=== PATIENT | female | born 1955 | race Caucasian/White ===

== ENCOUNTER 2020-11-07 10:03 | Inpatient (IN) ==
[2020-11-02 13:02] LABS: Basophils # 0.1 10*3/uL (0.0-0.2); Basophils % 1.1 % (0.0-0.8); Eosinophils # 0.4 10*3/uL (0.0-0.87); Eosinophils % 6.1 % (0.00-10.9); Hematocrit 38.5 VOL% (35.7-47.0); Immature Granulocytes % 0.3 %; Immature Granulocytes Absolute 0.02 #; Lymphocytes # 1.7 10*3/uL (1.4-4.0); Lymphocytes % 24.1 % (21.3-54.2); Mean Corpuscular HGB Conc 31.2 GM/DL (32-36); Mean Corpuscular Volume 87.5 FL (87-102); Mean Platelet Volume 9.6 FL (9.6-12.0); Neutrophils % 57.4 % (38.7-73.9); Platelet Count 433 T/CUMM (130-400); Red Cell Distribution Width 14.5 % (9.3-17.3)
[2020-11-02 13:28] LABS: Albumin 3.6 G/DL (3.4-5.0); Bilirubin,Total 0.7 MG/DL (0.20-1.00); Calcium 9.7 MG/DL (8.5-10.1); Osmolality,Calculated 281.4 MOS/KG (273-304); Potassium 4.1 MMOL/L (3.5-5.1); Total Protein 8.8 G/DL (6.4-8.2)
[~2020-11-07 10:03] MED LIST: LACTATED RINGERS 1,000 ML IV SCH; cefTRIAXone 1,000 MG in SODIUM CHLORIDE 0.9% 100 ML IV ONE
[2020-11-07] MEDS ORDERED: DIAZEPAM 5 MG TABLET PO ONE ×2 (10:50→10:51)
[2020-11-07] MEDS ORDERED: FAMOTIDINE 20 MG TABLET PO ONE ×2 (10:50→10:51)
[2020-11-07] MEDS ORDERED: fentaNYL 100 MCG/2 ML VIAL ONE (14:16)
[2020-11-07] MEDS ORDERED: MIDAZOLAM 2 MG/2 ML VIAL ONE (14:16)
[2020-11-07] MEDS ORDERED: LIDOCAINE 2% 5 ML VIAL ONE (14:28)
[2020-11-07] MEDS ORDERED: SEVOFLURANE 1 UNIT/15 MINUTE INH ONE (14:28)
[2020-11-07] MEDS ORDERED: ONDANSETRON 4 MG/2 ML VIAL ONE (14:28)
[2020-11-07] MEDS ORDERED: propofoL 200 MG/20 ML VIAL IV ONE (14:28)
[2020-11-07] MEDS ORDERED: ONDANSETRON 4 MG/2 ML VIAL IV PRN (15:24)
[2020-11-07] MEDS ORDERED: PROMETHAZINE 25 MG/1 ML VIAL IM PRN (15:24)
[2020-11-07] MEDS ORDERED: LACTULOSE 20 GM/30 ML UDCUP PO PRN (15:28)
[2020-11-07] MEDS ORDERED: cefTRIAXone 1,000 MG in SODIUM CHLORIDE 0.9% 100 ML IV SCH (15:30)
[2020-11-07] MEDS: DIVALPROEX ER 250 MG TABLET PO SCH (20:19)
[2020-11-07] MEDS: GABAPENTIN 300 MG CAPSULE PO SCH (20:20)
[2020-11-07] MEDS: levETIRAcetam 500 MG TABLET PO SCH (20:20)
[2020-11-07] MEDS: traZODone 50 MG TABLET PO SCH (20:20)
[2020-11-08 05:57] LABS: Potassium 4.4 MMOL/L (3.5-5.1)
[2020-11-08 06:07] LABS: Basophils # 0.1 10*3/uL (0.0-0.2); Eosinophils # 0.3 10*3/uL (0.0-0.87); Eosinophils % 2.8 % (0.00-10.9); Hematocrit 40.1 VOL% (35.7-47.0); Hemoglobin 12.1 GM/DL (12.0-16.0); Immature Granulocytes % 0.3 %; Immature Granulocytes Absolute 0.03 #; Lymphocytes # 1.2 10*3/uL (1.4-4.0); Mean Corpuscular HGB Conc 30.2 GM/DL (32-36); Mean Corpuscular Volume 93.3 FL (87-102); Mean Platelet Volume 9.8 FL (9.6-12.0); Monocytes % 16.9 % (1.7-12.7); Platelet Count 330 T/CUMM (130-400); Red Cell Distribution Width 14.6 % (9.3-17.3); White Blood Count 9.7 T/CUMM (4-12)
[2020-11-08] MEDS: LEVOTHYROXINE 88 MCG TABLET PO SCH (06:16)
[2020-11-08 06:21] LABS: Band Neutrophils 1 % (0-10); Eosinophils 1 % (0-10); Lymphocytes 17 % (20-55); Platelet Estimate Normal; Segmented Neutrophils 72 % (50-85); Total Cells Counted 100
[2020-11-08 09:03] LABS: INR 1.2; PT Patient Result 12.7 SECS (10.5-12.0)
[2020-11-08] MEDS: DIVALPROEX ER 250 MG TABLET PO SCH ×2 (09:05→21:11)
[2020-11-08] MEDS: levETIRAcetam 500 MG TABLET PO SCH (09:05)
[2020-11-08] MEDS: ACETAMINOPHEN 325 MG TABLET PO PRN ×2 (09:05→18:00)
[2020-11-08] MEDS: LORATADINE 10 MG TABLET PO SCH (09:06)
[2020-11-08] MEDS: SERTRALINE 100 MG TABLET PO SCH (09:06)
[2020-11-08 10:05] LABS: Basophils # 0.1 10*3/uL (0.0-0.2); Basophils % 1.3 % (0.0-0.8); Eosinophils # 0.2 10*3/uL (0.0-0.87); Eosinophils % 2.2 % (0.00-10.9); Hemoglobin 11.1 GM/DL (12.0-16.0); Immature Granulocytes % 0.3 %; Immature Granulocytes Absolute 0.03 #; Lymphocytes % 11.5 % (21.3-54.2); Mean Corpuscular HGB Conc 31.7 GM/DL (32-36); Mean Corpuscular Volume 86.6 FL (87-102); Mean Platelet Volume 9.4 FL (9.6-12.0); Monocytes % 11.7 % (1.7-12.7); Platelet Count 342 T/CUMM (130-400); Red Blood Count 4.04 MC/CUMM (3.8-5.5); Red Cell Distribution Width 14.6 % (9.3-17.3); White Blood Count 8.7 T/CUMM (4-12)
[2020-11-08 10:38] LABS: Bilirubin,Total 0.4 MG/DL (0.20-1.00); Calcium 8.7 MG/DL (8.5-10.1); Osmolality,Calculated 278.8 MOS/KG (273-304); Potassium 4.1 MMOL/L (3.5-5.1); Total Protein 8.8 G/DL (6.4-8.2)
[2020-11-08 12:30] LABS: Bilirubin,Urine Negative (Negative); Blood, Urine Moderate mg/dL (Negative); Glucose,Urine (UA) Negative (Negative); Ketones,Urine 5 mg/dL (Negative); Mucus,Urine Few /LPF (Occasional); Nitrite,Urine Negative (Negative); Protein,Urine 100 MG/DL; RBC,Urine 334 /HPF (0-4); Urine Appearance CLOUDY (Clear); Urine Color Yellow (Yellow); Urine Specific Gravity 1.013 (1.001-1.035); Urine Urobilinogen < 2.0 EU/DL (0.2-1.0)
[2020-11-08] MEDS: SODIUM CHLORIDE 0.9% 1,000 ML IV SCH ×2 (13:31→13:57)
[2020-11-08] MEDS ORDERED: HYDROmorphone 2 MG/1 ML VIAL IV PRN (13:32)
[2020-11-08] MEDS ORDERED: ONDANSETRON 4 MG/2 ML VIAL IV PRN (13:32)
[2020-11-08] MEDS ORDERED: MEPERIDINE 25 MG/1 ML VIAL IV PRN (13:32)
[2020-11-08] MEDS ORDERED: PROMETHAZINE INJ 25 MG in SODIUM CHLORIDE 0.9% 50 ML IV PRN (13:32)
[2020-11-08] MEDS ORDERED: diphenhydrAMINE 50 MG/1 ML VIAL IV PRN (13:32)
[2020-11-08] MEDS ORDERED: propofoL 200 MG/20 ML VIAL IV ONE (13:43)
[2020-11-08] MEDS ORDERED: PHENYLEPHRINE 1 MG/10 ML SYRINGE IV ONE (13:43)
[2020-11-08] MEDS ORDERED: LIDOCAINE 2% 5 ML VIAL ONE (13:43)
[2020-11-08] MEDS ORDERED: ONDANSETRON 4 MG/2 ML VIAL ONE (13:44)
[2020-11-08] MEDS ORDERED: fentaNYL 100 MCG/2 ML VIAL ONE (13:44)
[2020-11-08] MEDS ORDERED: MIDAZOLAM 2 MG/2 ML VIAL ONE (13:44)
[2020-11-08] MEDS ORDERED: PHENYLEPHRINE 10 MG/1 ML VIAL IV ONE (13:44)
[2020-11-08] MEDS ORDERED: DEXAMETHASONE 4 MG/1 ML VIAL ONE ×2 (13:44→13:47)
[2020-11-08] MEDS ORDERED: ROCURONIUM 50 MG/5 ML VIAL IV ONE (13:45)
[2020-11-08] MEDS ORDERED: SODIUM CHLORIDE 0.9% 100 ML IV ONE (13:45)
[2020-11-08] MEDS ORDERED: LACTATED RINGERS 1,000 ML IV ONE (13:45)
[2020-11-08] MEDS ORDERED: SUCCINYLCHOLINE 200 MG/10 ML VIAL ONE (13:45)
[2020-11-08] MEDS ORDERED: SEVOFLURANE 1 UNIT/15 MINUTE INH ONE (13:52)
[2020-11-08] MEDS: CEFEPIME 1,000 MG in SODIUM CHLORIDE 0.9% 100 ML IV SCH (15:09)
[2020-11-08] MEDS: PANTOPRAZOLE 40 MG TABLET PO SCH (21:11)
[2020-11-09] MEDS: traZODone 50 MG TABLET PO SCH ×2 (00:05→21:44)
[2020-11-09] MEDS: gemfibroziL 600 MG TABLET PO SCH ×3 (00:05→21:43)
[2020-11-09] MEDS: GABAPENTIN 300 MG CAPSULE PO SCH ×2 (00:05→21:44)
[2020-11-09] MEDS: levETIRAcetam 500 MG TABLET PO SCH ×3 (00:05→21:43)
[2020-11-09] MEDS: CEFEPIME 1,000 MG in SODIUM CHLORIDE 0.9% 100 ML IV SCH ×2 (04:20→15:22)
[2020-11-09 06:19] LABS: Risk Ratio 7.13; Thyroid Stimulating Hormone 1.69 uIU/ml (0.358-3.74); VLDL Cholesterol 54.2 MG/DL
[2020-11-09] MEDS: LEVOTHYROXINE 88 MCG TABLET PO SCH (06:24)
[2020-11-09 07:36] LABS: Basophils # 0.1 10*3/uL (0.0-0.2); Basophils % 0.6 % (0.0-0.8); Eosinophils % 0.1 % (0.00-10.9); Hematocrit 34.3 VOL% (35.7-47.0); Hemoglobin 10.7 GM/DL (12.0-16.0); Immature Granulocytes % 0.5 %; Immature Granulocytes Absolute 0.05 #; Lymphocytes # 0.6 10*3/uL (1.4-4.0); Lymphocytes % 5.9 % (21.3-54.2); Mean Corpuscular HGB Conc 31.2 GM/DL (32-36); Mean Corpuscular Volume 88.6 FL (87-102); Mean Platelet Volume 10.3 FL (9.6-12.0); Monocytes % 4.4 % (1.7-12.7); Neutrophils % 88.5 % (38.7-73.9); Platelet Count 251 T/CUMM (130-400); Red Blood Count 3.87 MC/CUMM (3.8-5.5); Red Cell Distribution Width 14.8 % (9.3-17.3); White Blood Count 10.7 T/CUMM (4-12)
[2020-11-09] MEDS ORDERED: DEXTROSE 50% 25 GM/50 ML VIAL IV PRN (07:41)
[2020-11-09] MEDS ORDERED: GLUCAGON 1 MG VIAL IM PRN (07:41)
[2020-11-09 07:44] LABS: Osmolality,Calculated 284.5 MOS/KG (273-304); Potassium 3.7 MMOL/L (3.5-5.1)
[2020-11-09 07:59] LABS: Band Neutrophils 3 % (0-10); Lymphocytes 5 % (20-55); Platelet Estimate Adequate; Segmented Neutrophils 89 % (50-85); Total Cells Counted 100
[2020-11-09 08:00] LABS: Hypochromasia Slight; Microcytosis Slight
[2020-11-09] MEDS: LORATADINE 10 MG TABLET PO SCH (14:26)
[2020-11-09] MEDS: DIVALPROEX ER 250 MG TABLET PO SCH ×2 (14:26→22:25)
[2020-11-09] MEDS: PANTOPRAZOLE 40 MG TABLET PO SCH (14:27)
[2020-11-09] MEDS: SERTRALINE 100 MG TABLET PO SCH (14:27)
[2020-11-09] MEDS: INSULIN LISPRO 100 UNIT/ML SUBCUT SCH ×3 (14:54→21:56)
[2020-11-09] MEDS ORDERED: SODIUM CHLORIDE 0.9% 500 ML IV ONE ×3 (15:04→23:32)
[2020-11-09] MEDS ORDERED: LACTULOSE 320 GM/480 ML BOTTLE RECTAL PRN (15:20)
[2020-11-09] MEDS ORDERED: LACTULOSE 320 GM/480 ML BOTTLE RECTAL ONE (15:31)
[2020-11-09] MEDS ORDERED: VANCOMYCIN INJ 1,000 MG in SODIUM CHLORIDE 0.9% 250 ML IV ONE (16:55)
[2020-11-09] MEDS ORDERED: METOPROLOL TARTRATE 5 MG/5 ML VIAL IV ONE ×2 (17:05→17:06)
[2020-11-09] MEDS: SODIUM CHLORIDE 0.9% 1,000 ML IV SCH ×3 (17:40→18:00)
[2020-11-09] MEDS ORDERED: LORazepam 2 MG/1 ML VIAL IV ONE (17:44)
[2020-11-09] MEDS ORDERED: DIGOXIN 0.5 MG/2 ML AMP IV ONE ×2 (17:50→18:50)
[2020-11-09] MEDS ORDERED: DIGOXIN 0.5 MG/2 ML AMP ONE ×2 (17:52→17:54)
[2020-11-09 18:02] LABS: Basophils # 0.1 10*3/uL (0.0-0.2); Basophils % 0.7 % (0.0-0.8); Hematocrit 32.7 VOL% (35.7-47.0); Immature Granulocytes % 0.7 %; Immature Granulocytes Absolute 0.06 #; Lymphocytes # 0.8 10*3/uL (1.4-4.0); Lymphocytes % 9.3 % (21.3-54.2); Mean Corpuscular HGB Conc 30.6 GM/DL (32-36); Mean Corpuscular Volume 89.6 FL (87-102); Monocytes % 2.5 % (1.7-12.7); NRBC # 0.02 10*3/uL; Neutrophils % 86.8 % (38.7-73.9); Platelet Count 165 T/CUMM (130-400); Red Blood Count 3.65 MC/CUMM (3.8-5.5); Red Cell Distribution Width 15.1 % (9.3-17.3); White Blood Count 8.9 T/CUMM (4-12)
[2020-11-09 18:22] LABS: Albumin 2.1 G/DL (3.4-5.0); Bilirubin,Total 0.5 MG/DL (0.20-1.00); Calcium 7.7 MG/DL (8.5-10.1); Osmolality,Calculated 287.4 MOS/KG (273-304); Potassium 3.4 MMOL/L (3.5-5.1); Total Protein 6.8 G/DL (6.4-8.2)
[2020-11-09 18:42] LABS: Band Neutrophils 11 % (0-10); Lymphocytes 6 % (20-55); Platelet Estimate Normal; Segmented Neutrophils 81 % (50-85); Total Cells Counted 100; Toxic Granulation 1+
[2020-11-09] MEDS ORDERED: LACTULOSE 320 GM/480 ML BOTTLE RECTAL SCH (21:00)
[2020-11-09] MEDS: ACETAMINOPHEN 325 MG TABLET PO PRN (21:43)
[2020-11-09] MEDS: LACTULOSE 20 GM/30 ML UDCUP PO SCH (21:44)
[2020-11-09] MEDS ORDERED: ACETAMINOPHEN 325 MG TABLET PO ONE (23:33)
[2020-11-10] MEDS: VALPROIC ACID 250 MG/5 ML UDCUP PO SCH ×4 (00:17→18:01)
[2020-11-10] MEDS: NOREPINEPHRINE 8 MG in SODIUM CHLORIDE 0.9% 242 ML IV PRN ×4 (00:40→12:26)
[2020-11-10 02:32] LABS: Basophils # 0.1 10*3/uL (0.0-0.2); Basophils % 0.5 % (0.0-0.8); Hematocrit 32.3 VOL% (35.7-47.0); Hemoglobin 10.1 GM/DL (12.0-16.0); Immature Granulocytes % 0.8 %; Immature Granulocytes Absolute 0.09 #; Lymphocytes # 1.2 10*3/uL (1.4-4.0); Lymphocytes % 10.2 % (21.3-54.2); Mean Corpuscular HGB Conc 31.3 GM/DL (32-36); Mean Corpuscular Volume 87.8 FL (87-102); Mean Platelet Volume 10.1 FL (9.6-12.0); Monocytes % 2.5 % (1.7-12.7); Platelet Count 148 T/CUMM (130-400); Red Blood Count 3.68 MC/CUMM (3.8-5.5); Red Cell Distribution Width 15.1 % (9.3-17.3); White Blood Count 11.7 T/CUMM (4-12)
[2020-11-10] MEDS: CEFEPIME 1,000 MG in SODIUM CHLORIDE 0.9% 100 ML IV SCH (02:40)
[2020-11-10 02:54] LABS: Calcium 7.3 MG/DL (8.5-10.1); Osmolality,Calculated 293.1 MOS/KG (273-304); Potassium 3.1 MMOL/L (3.5-5.1)
[2020-11-10 03:02] LABS: Band Neutrophils 13 % (0-10); Lymphocytes 16 % (20-55); Metamyelocytes 5 %; Segmented Neutrophils 63 % (50-85); Total Cells Counted 100
[2020-11-10 03:03] LABS: Reactive Lymphocytes 1+
[2020-11-10 03:04] LABS: Platelet Estimate Normal
[2020-11-10] MEDS ORDERED: MAGNESIUM SULF RIDER 4 GM/100 ML PREMIX IV PRN (03:42)
[2020-11-10] MEDS ORDERED: MAGNESIUM SULF RIDER 2 GM/50 ML PREMIX IV PRN (03:42)
[2020-11-10] MEDS ORDERED: NOREPINEPHRINE 4 MG/4 ML VIAL IV ONE ×2 (03:55→07:41)
[2020-11-10 05:08] LABS: ABG Base Excess -14.3 MMOL/L (-2.5-2.5); ABG HCO3 13.5 MMOL/L (20-26); ABG Oxygen Saturation 97.2 % (95-100); ABG PH 7.316 (7.35-7.45); ABG TCO2 9.6 MMOL/L (23-27)
[2020-11-10 05:14] LABS: ABG PCO2 20.6 MM HG (35-48)
[2020-11-10] MEDS ORDERED: POTASSIUM CHLORIDE RIDER 10 MEQ/100 ML PREMIX IV PRN (05:18)
[2020-11-10] MEDS: POTASSIUM BICARB EFFERVESCENT 20 MEQ TAB.EFF PER TUBE PRN ×4 (05:30→09:50)
[2020-11-10] MEDS: METOPROLOL TARTRATE 5 MG/5 ML VIAL IV PRN ×3 (05:39→15:55)
[2020-11-10] MEDS: SODIUM CHLORIDE 0.9% 1,000 ML IV SCH ×2 (05:40→10:45)
[2020-11-10] MEDS: LEVOTHYROXINE 100 MCG VIAL IV SCH (05:40)
[2020-11-10] MEDS ORDERED: methylPREDNISolone SOD SUC 125 MG/2 ML VIAL IV SCH (07:00)
[2020-11-10] MEDS ORDERED: ENOXAPARIN 30 MG/0.3 ML SYRINGE SUBCUT SCH (08:00)
[2020-11-10] MEDS: INSULIN LISPRO 100 UNIT/ML SUBCUT SCH ×3 (08:32→16:56)
[2020-11-10] MEDS: ENOXAPARIN 30 MG/0.3 ML SYRINGE SUBCUT SCH (08:32)
[2020-11-10] MEDS: PANTOPRAZOLE 40 MG VIAL IV SCH (08:32)
[2020-11-10] MEDS: CHOLECALCIFEROL 5,000 UNIT TABLET PO SCH ×2 (08:33→21:10)
[2020-11-10] MEDS: LACTULOSE 20 GM/30 ML UDCUP PO SCH ×2 (08:33→21:10)
[2020-11-10] MEDS: gemfibroziL 600 MG TABLET PO SCH ×2 (08:33→21:11)
[2020-11-10] MEDS: ASCORBIC ACID 500 MG TABLET PO SCH ×2 (08:34→21:11)
[2020-11-10] MEDS: LORATADINE 10 MG TABLET PO SCH (08:34)
[2020-11-10] MEDS: ZINC GLUCONATE 50 MG TABLET PO SCH (08:34)
[2020-11-10] MEDS: CETIRIZINE 10 MG TABLET PO SCH (08:34)
[2020-11-10] MEDS: SERTRALINE 100 MG TABLET PO SCH (08:34)
[2020-11-10] MEDS: levETIRAcetam 500 MG TABLET PO SCH ×2 (08:34→21:11)
[2020-11-10 08:58] LABS: Ferritin 418.1 ng/mL (8-252)
[2020-11-10] MEDS ORDERED: CASIRIVIMAB/IMDEVIMAB 1,200 MG in SODIUM CHLORIDE 0.9% 100 ML IV ONE (09:00)
[2020-11-10] MEDS ORDERED: SODIUM BICARBONATE 50 MEQ/50 ML VIAL IV ONE (09:36)
[2020-11-10] MEDS: methylPREDNISolone SOD SUC 125 MG/2 ML VIAL IV SCH ×2 (09:45→18:01)
[2020-11-10] MEDS: SODIUM BICARB INJ 150 MEQ in STERILE WATER INJ 1,000 ML IV SCH (10:44)
[2020-11-10] MEDS ORDERED: SODIUM CHLORIDE 0.9% 1,000 ML IV ONE (12:56)
[2020-11-10] MEDS: SODIUM CHLORIDE 0.9% 1,000 ML IV ONE ×2 (13:10→14:32)
[2020-11-10] MEDS ORDERED: LEVOFLOXACIN INJ 750 MG/150 ML PREMIX IV ONE (13:30)
[2020-11-10] MEDS: VANCOMYCIN 50 MG/ML 60 ML/BOTTLE PO SCH ×2 (14:12→18:01)
[2020-11-10] MEDS: ALBUMIN 5% 25 GM/500 ML VIAL IV SCH (19:27)
[2020-11-10] MEDS: GABAPENTIN 300 MG CAPSULE PO SCH (21:10)
[2020-11-10] MEDS: MELATONIN 3 MG TABLET PO SCH (21:10)
[2020-11-10] MEDS: traZODone 50 MG TABLET PO SCH (21:11)
[2020-11-10] MEDS ORDERED: SODIUM CHLORIDE 0.9% 200 ML IV SCH (23:59)
[2020-11-10] MEDS ORDERED: ACETAMINOPHEN 325 MG TABLET PO PRN (23:59)
[2020-11-10] MEDS ORDERED: MECLIZINE 25 MG TABLET PO PRN (23:59)
[2020-11-10] MEDS ORDERED: ONDANSETRON 4 MG/2 ML VIAL IV PRN (23:59)
[2020-11-10] MEDS ORDERED: diphenhydrAMINE 50 MG/1 ML VIAL IV PRN ×2 (23:59)
[2020-11-11] MEDS: VALPROIC ACID 250 MG/5 ML UDCUP PO SCH ×4 (00:32→18:05)
[2020-11-11] MEDS: INSULIN LISPRO 100 UNIT/ML SUBCUT SCH ×4 (00:33→18:52)
[2020-11-11] MEDS: VANCOMYCIN 50 MG/ML 60 ML/BOTTLE PO SCH ×4 (00:33→18:05)
[2020-11-11] MEDS: methylPREDNISolone SOD SUC 125 MG/2 ML VIAL IV SCH ×2 (02:33→11:42)
[2020-11-11] MEDS: ALBUMIN 5% 25 GM/500 ML VIAL IV SCH ×2 (02:33→11:43)
[2020-11-11] MEDS: CEFEPIME 1,000 MG in SODIUM CHLORIDE 0.9% 100 ML IV SCH (02:34)
[2020-11-11] MEDS: METOPROLOL TARTRATE 5 MG/5 ML VIAL IV PRN (03:24)
[2020-11-11] MEDS: NOREPINEPHRINE 8 MG in SODIUM CHLORIDE 0.9% 242 ML IV PRN (03:29)
[2020-11-11 04:43] LABS: Calcium 7.1 MG/DL (8.5-10.1); Potassium 3.4 MMOL/L (3.5-5.1)
[2020-11-11 04:51] LABS: Basophils % 0.1 % (0.0-0.8)
[2020-11-11 05:08] LABS: Hematocrit 24.1 VOL% (35.7-47.0); Immature Granulocytes % 0.5 %; Immature Granulocytes Absolute 0.04 #; Lymphocytes # 0.6 10*3/uL (1.4-4.0); Lymphocytes % 6.9 % (21.3-54.2); Mean Corpuscular HGB Conc 32.4 GM/DL (32-36); Mean Corpuscular Volume 84.9 FL (87-102); Mean Platelet Volume 11.3 FL (9.6-12.0); Monocytes % 3.6 % (1.7-12.7); Neutrophils % 88.9 % (38.7-73.9); Platelet Count 124 T/CUMM (130-400); Red Cell Distribution Width 15.6 % (9.3-17.3); White Blood Count 8.4 T/CUMM (4-12)
[2020-11-11 05:09] LABS: Hemoglobin 7.8 GM/DL (12.0-16.0); Red Blood Count 2.84 MC/CUMM (3.8-5.5)
[2020-11-11 05:39] LABS: Band Neutrophils 11 % (0-10); Hypochromasia Slight; Lymphocytes 7 % (20-55); Microcytosis Slight; Nucleated Red Blood Cells 1 (0-5); Platelet Estimate Normal; Segmented Neutrophils 81 % (50-85); Total Cells Counted 100
[2020-11-11] MEDS: LEVOTHYROXINE 100 MCG VIAL IV SCH (06:26)
[2020-11-11] MEDS: ENOXAPARIN 30 MG/0.3 ML SYRINGE SUBCUT SCH (09:13)
[2020-11-11] MEDS: LACTULOSE 20 GM/30 ML UDCUP PO SCH ×2 (09:13→20:38)
[2020-11-11] MEDS: POTASSIUM BICARB EFFERVESCENT 20 MEQ TAB.EFF PER TUBE PRN ×3 (09:13→14:00)
[2020-11-11] MEDS: gemfibroziL 600 MG TABLET PO SCH ×2 (09:14→20:37)
[2020-11-11] MEDS: PANTOPRAZOLE 40 MG VIAL IV SCH (09:14)
[2020-11-11] MEDS: LORATADINE 10 MG TABLET PO SCH (09:14)
[2020-11-11] MEDS: levETIRAcetam 500 MG TABLET PO SCH ×2 (09:14→20:37)
[2020-11-11] MEDS: SERTRALINE 100 MG TABLET PO SCH (09:14)
[2020-11-11] MEDS: CHOLECALCIFEROL 5,000 UNIT TABLET PO SCH ×2 (09:14→20:38)
[2020-11-11] MEDS: ZINC GLUCONATE 50 MG TABLET PO SCH (09:14)
[2020-11-11] MEDS: CETIRIZINE 10 MG TABLET PO SCH (09:14)
[2020-11-11] MEDS: ASCORBIC ACID 500 MG TABLET PO SCH ×2 (09:14→20:37)
[2020-11-11] MEDS: SODIUM BICARB INJ 150 MEQ in STERILE WATER INJ 1,000 ML IV SCH (11:42)
[2020-11-11] MEDS ORDERED: SODIUM CHLORIDE 0.9% 1,000 ML IV PRN (12:10)
[2020-11-11] MEDS: methylPREDNISolone SOD SUC 40 MG/1 ML VIAL IV SCH (18:05)
[2020-11-11 20:28] LABS: ABG HCO3 22.7 MMOL/L (20-26); ABG Oxygen Saturation 96.4 % (95-100); ABG PCO2 27.7 MM HG (35-48); ABG PH 7.473 (7.35-7.45); ABG PO2 79.2 MM HG (80-95); ABG TCO2 17.7 MMOL/L (23-27)
[2020-11-11] MEDS ORDERED: CLORAZEPATE 3.75 MG TABLET PO ONE (20:30)
[2020-11-11] MEDS: MELATONIN 3 MG TABLET PO SCH (20:37)
[2020-11-11] MEDS: traZODone 50 MG TABLET PO SCH (20:37)
[2020-11-11] MEDS: GABAPENTIN 300 MG CAPSULE PO SCH (20:38)
[2020-11-12] MEDS: VANCOMYCIN 50 MG/ML 60 ML/BOTTLE PO SCH ×4 (01:03→18:57)
[2020-11-12] MEDS: VALPROIC ACID 250 MG/5 ML UDCUP PO SCH ×4 (01:03→18:57)
[2020-11-12] MEDS: INSULIN LISPRO 100 UNIT/ML SUBCUT SCH ×4 (01:04→18:57)
[2020-11-12] MEDS: methylPREDNISolone SOD SUC 40 MG/1 ML VIAL IV SCH ×3 (01:04→18:57)
[2020-11-12] MEDS: CEFEPIME 1,000 MG in SODIUM CHLORIDE 0.9% 100 ML IV SCH (02:04)
[2020-11-12 06:05] LABS: Basophils % 0.3 % (0.0-0.8); Hematocrit 28.5 VOL% (35.7-47.0); Hemoglobin 9.3 GM/DL (12.0-16.0); Immature Granulocytes % 1.7 %; Immature Granulocytes Absolute 0.12 #; Lymphocytes # 0.3 10*3/uL (1.4-4.0); Lymphocytes % 4.7 % (21.3-54.2); Mean Corpuscular HGB Conc 32.6 GM/DL (32-36); Mean Corpuscular Volume 88.5 FL (87-102); Mean Platelet Volume 12.3 FL (9.6-12.0); Monocytes % 4.5 % (1.7-12.7); Neutrophils % 88.8 % (38.7-73.9); Red Blood Count 3.22 MC/CUMM (3.8-5.5); Red Cell Distribution Width 16.9 % (9.3-17.3); White Blood Count 7.3 T/CUMM (4-12)
[2020-11-12 06:17] LABS: Albumin 2.4 G/DL (3.4-5.0); Bilirubin,Total 0.5 MG/DL (0.20-1.00); Calcium 7.9 MG/DL (8.5-10.1); Potassium 3.7 MMOL/L (3.5-5.1); Total Protein 6.6 G/DL (6.4-8.2)
[2020-11-12 06:18] LABS: Platelet Count 91 T/CUMM (130-400)
[2020-11-12 06:29] LABS: Band Neutrophils 4 % (0-10); Hypochromasia 1+; Lymphocytes 4 % (20-55); Microcytosis 1+; Platelet Estimate Decreased; Segmented Neutrophils 88 % (50-85); Total Cells Counted 100
[2020-11-12] MEDS: POTASSIUM BICARB EFFERVESCENT 20 MEQ TAB.EFF PER TUBE PRN (06:37)
[2020-11-12] MEDS: LEVOTHYROXINE 100 MCG VIAL IV SCH (06:40)
[2020-11-12] MEDS: LACTULOSE 20 GM/30 ML UDCUP PO SCH ×2 (08:06→22:01)
[2020-11-12] MEDS: ENOXAPARIN 30 MG/0.3 ML SYRINGE SUBCUT SCH (08:06)
[2020-11-12] MEDS: PANTOPRAZOLE 40 MG VIAL IV SCH (08:06)
[2020-11-12] MEDS: CETIRIZINE 10 MG TABLET PO SCH (08:07)
[2020-11-12] MEDS: CHOLECALCIFEROL 5,000 UNIT TABLET PO SCH ×2 (08:07→22:01)
[2020-11-12] MEDS: levETIRAcetam 500 MG TABLET PO SCH ×2 (08:07→22:02)
[2020-11-12] MEDS: ASCORBIC ACID 500 MG TABLET PO SCH ×2 (08:07→22:02)
[2020-11-12] MEDS: gemfibroziL 600 MG TABLET PO SCH ×2 (08:07→22:01)
[2020-11-12] MEDS: SERTRALINE 100 MG TABLET PO SCH (08:07)
[2020-11-12] MEDS: ZINC GLUCONATE 50 MG TABLET PO SCH (08:07)
[2020-11-12] MEDS: LORATADINE 10 MG TABLET PO SCH (08:07)
[2020-11-12] MEDS: NOREPINEPHRINE 8 MG in SODIUM CHLORIDE 0.9% 242 ML IV PRN (08:08)
[2020-11-12] MEDS ORDERED: POTASSIUM PHOSPHATE 30 MMOL in SODIUM CHLORIDE 0.9% 250 ML IV ONE (10:56)
[2020-11-12] MEDS: LEVOFLOXACIN INJ 500 MG/100 ML PREMIX IV SCH (13:27)
[2020-11-12] MEDS: SODIUM BICARB INJ 150 MEQ in STERILE WATER INJ 1,000 ML IV SCH (14:43)
[2020-11-12] MEDS: MICAFUNGIN 100 MG in SODIUM CHLORIDE 0.9% 100 ML IV SCH (15:45)
[2020-11-12] MEDS: MELATONIN 3 MG TABLET PO SCH (22:01)
[2020-11-12] MEDS: traZODone 50 MG TABLET PO SCH (22:02)
[2020-11-12] MEDS: GABAPENTIN 300 MG CAPSULE PO SCH (22:02)
[2020-11-12] MEDS: ACETAMINOPHEN 325 MG TABLET PO PRN (22:02)
[2020-11-13] MEDS: VALPROIC ACID 250 MG/5 ML UDCUP PO SCH ×4 (00:19→18:56)
[2020-11-13] MEDS: INSULIN LISPRO 100 UNIT/ML SUBCUT SCH ×4 (00:19→18:56)
[2020-11-13] MEDS: VANCOMYCIN 50 MG/ML 60 ML/BOTTLE PO SCH ×4 (00:19→18:57)
[2020-11-13] MEDS: CEFEPIME 1,000 MG in SODIUM CHLORIDE 0.9% 100 ML IV SCH (02:19)
[2020-11-13] MEDS: methylPREDNISolone SOD SUC 40 MG/1 ML VIAL IV SCH ×3 (02:20→18:56)
[2020-11-13 05:51] LABS: Basophils % 0.2 % (0.0-0.8); Eosinophils % 0.2 % (0.00-10.9); Hematocrit 28.3 VOL% (35.7-47.0); Immature Granulocytes % 0.5 %; Immature Granulocytes Absolute 0.03 #; Lymphocytes # 0.3 10*3/uL (1.4-4.0); Lymphocytes % 5.9 % (21.3-54.2); Mean Corpuscular HGB Conc 31.8 GM/DL (32-36); Mean Corpuscular Volume 90.1 FL (87-102); Mean Platelet Volume 12.5 FL (9.6-12.0); Neutrophils % 89.2 % (38.7-73.9); Red Blood Count 3.14 MC/CUMM (3.8-5.5); Red Cell Distribution Width 17.5 % (9.3-17.3); White Blood Count 5.8 T/CUMM (4-12)
[2020-11-13] MEDS: LEVOTHYROXINE 100 MCG VIAL IV SCH (06:05)
[2020-11-13 06:30] LABS: Platelet Count 69 T/CUMM (130-400)
[2020-11-13 06:35] LABS: Band Neutrophils 4 % (0-10); Lymphocytes 7 % (20-55); Segmented Neutrophils 85 % (50-85); Total Cells Counted 100
[2020-11-13 06:36] LABS: Hypochromasia 1+; Microcytosis 1+; Platelet Estimate Decreased
[2020-11-13 07:20] LABS: Calcium 7.6 MG/DL (8.5-10.1); Osmolality,Calculated 308.1 MOS/KG (273-304); Potassium 4.2 MMOL/L (3.5-5.1)
[2020-11-13] MEDS: ZINC GLUCONATE 50 MG TABLET PO SCH (08:04)
[2020-11-13] MEDS: CHOLECALCIFEROL 5,000 UNIT TABLET PO SCH ×2 (08:05→21:46)
[2020-11-13] MEDS: ASCORBIC ACID 500 MG TABLET PO SCH ×2 (08:05→21:46)
[2020-11-13] MEDS: gemfibroziL 600 MG TABLET PO SCH ×2 (08:05→21:47)
[2020-11-13] MEDS: LORATADINE 10 MG TABLET PO SCH (08:05)
[2020-11-13] MEDS: levETIRAcetam 500 MG TABLET PO SCH ×2 (08:05→21:47)
[2020-11-13] MEDS: SERTRALINE 100 MG TABLET PO SCH (08:05)
[2020-11-13] MEDS: LACTULOSE 20 GM/30 ML UDCUP PO SCH ×2 (08:05→21:46)
[2020-11-13] MEDS: CETIRIZINE 10 MG TABLET PO SCH (08:05)
[2020-11-13] MEDS: PANTOPRAZOLE 40 MG VIAL IV SCH (08:06)
[2020-11-13] MEDS: INSULIN GLARGINE 100 UNIT/ML SUBCUT SCH (12:20)
[2020-11-13] MEDS ORDERED: FONDAPARINUX 2.5 MG/0.5 ML SYRINGE SUBCUT SCH (15:00)
[2020-11-13] MEDS: ACETAMINOPHEN 325 MG TABLET PO PRN ×2 (16:32→21:47)
[2020-11-13] MEDS ORDERED: SODIUM CHLORIDE 0.9% 1,000 ML IV ONE (16:50)
[2020-11-13] MEDS: PHENYLEPHRINE DRIP 40 MG/250 ML PREMIX IV PRN ×2 (17:40→23:45)
[2020-11-13] MEDS: MICAFUNGIN 100 MG in SODIUM CHLORIDE 0.9% 100 ML IV SCH (19:11)
[2020-11-13] MEDS: MELATONIN 3 MG TABLET PO SCH (21:46)
[2020-11-13] MEDS: GABAPENTIN 300 MG CAPSULE PO SCH (21:47)
[2020-11-13] MEDS: traZODone 50 MG TABLET PO SCH (21:47)
[2020-11-14] MEDS: VALPROIC ACID 250 MG/5 ML UDCUP PO SCH ×4 (00:20→17:34)
[2020-11-14] MEDS: VANCOMYCIN 50 MG/ML 60 ML/BOTTLE PO SCH ×4 (00:20→17:44)
[2020-11-14] MEDS: INSULIN LISPRO 100 UNIT/ML SUBCUT SCH ×4 (00:29→17:44)
[2020-11-14] MEDS: CEFEPIME 1,000 MG in SODIUM CHLORIDE 0.9% 100 ML IV SCH (02:51)
[2020-11-14] MEDS: methylPREDNISolone SOD SUC 40 MG/1 ML VIAL IV SCH ×3 (02:51→17:34)
[2020-11-14 04:33] LABS: Basophils % 0.1 % (0.0-0.8); Eosinophils % 0.1 % (0.00-10.9); Hematocrit 29.4 VOL% (35.7-47.0); Hemoglobin 9.2 GM/DL (12.0-16.0); Immature Granulocytes % 2.3 %; Immature Granulocytes Absolute 0.22 #; Lymphocytes # 0.5 10*3/uL (1.4-4.0); Lymphocytes % 5.6 % (21.3-54.2); Mean Corpuscular HGB Conc 31.3 GM/DL (32-36); Mean Corpuscular Volume 91.6 FL (87-102); Mean Platelet Volume 12.6 FL (9.6-12.0); Monocytes % 2.6 % (1.7-12.7); Neutrophils % 89.3 % (38.7-73.9); Red Blood Count 3.21 MC/CUMM (3.8-5.5); Red Cell Distribution Width 17.9 % (9.3-17.3)
[2020-11-14 04:38] LABS: Platelet Count 49 T/CUMM (130-400); White Blood Count 9.7 T/CUMM (4-12)
[2020-11-14 04:48] LABS: Calcium 7.5 MG/DL (8.5-10.1); Osmolality,Calculated 306.7 MOS/KG (273-304)
[2020-11-14 04:54] LABS: Band Neutrophils 5 % (0-10); Hypochromasia 1+; Lymphocytes 8 % (20-55); Microcytosis 1+; Segmented Neutrophils 86 % (50-85); Total Cells Counted 100
[2020-11-14 04:55] LABS: Platelet Estimate Decreased
[2020-11-14] MEDS: LEVOTHYROXINE 100 MCG VIAL IV SCH (06:13)
[2020-11-14] MEDS: LACTULOSE 20 GM/30 ML UDCUP PO SCH ×2 (08:38→22:15)
[2020-11-14] MEDS: INSULIN GLARGINE 100 UNIT/ML SUBCUT SCH (08:38)
[2020-11-14] MEDS: PANTOPRAZOLE 40 MG VIAL IV SCH (08:38)
[2020-11-14] MEDS: CHOLECALCIFEROL 5,000 UNIT TABLET PO SCH ×2 (08:39→22:15)
[2020-11-14] MEDS: ASCORBIC ACID 500 MG TABLET PO SCH ×2 (08:39→22:15)
[2020-11-14] MEDS: ZINC GLUCONATE 50 MG TABLET PO SCH (08:39)
[2020-11-14] MEDS: levETIRAcetam 500 MG TABLET PO SCH ×2 (08:39→22:15)
[2020-11-14] MEDS: CETIRIZINE 10 MG TABLET PO SCH (08:39)
[2020-11-14] MEDS: SERTRALINE 100 MG TABLET PO SCH (08:39)
[2020-11-14] MEDS: gemfibroziL 600 MG TABLET PO SCH ×2 (08:40→22:15)
[2020-11-14] MEDS: LORATADINE 10 MG TABLET PO SCH (08:40)
[2020-11-14] MEDS: LEVOFLOXACIN INJ 500 MG/100 ML PREMIX IV SCH (14:00)
[2020-11-14 17:05] LABS: Basophils % 0.5 % (0.0-0.8); Eosinophils % 0.5 % (0.00-10.9); Hematocrit 28.3 VOL% (35.7-47.0); Hemoglobin 8.9 GM/DL (12.0-16.0); Immature Granulocytes % 12.9 %; Immature Granulocytes Absolute 0.73 #; Lymphocytes # 0.7 10*3/uL (1.4-4.0); Mean Corpuscular HGB Conc 31.4 GM/DL (32-36); Mean Platelet Volume 13.2 FL (9.6-12.0); NRBC # 0.02 10*3/uL; Neutrophils % 65.1 % (38.7-73.9); Platelet Count 42 T/CUMM (130-400); Red Blood Count 3.01 MC/CUMM (3.8-5.5); Red Cell Distribution Width 17.8 % (9.3-17.3); White Blood Count 5.7 T/CUMM (4-12)
[2020-11-14] MEDS: MICAFUNGIN 100 MG in SODIUM CHLORIDE 0.9% 100 ML IV SCH (17:33)
[2020-11-14 21:08] LABS: Band Neutrophils 8 % (0-10); Eosinophils 1 % (0-10); Lymphocytes 16 % (20-55); Nucleated Red Blood Cells 1 (0-5); Platelet Estimate Decreased; Segmented Neutrophils 71 % (50-85); Total Cells Counted 100
[2020-11-14 21:18] LABS: Anisocytosis 1+; Microcytosis Slight
[2020-11-14] MEDS: GABAPENTIN 300 MG CAPSULE PO SCH (22:15)
[2020-11-14] MEDS: MELATONIN 3 MG TABLET PO SCH (22:15)
[2020-11-14] MEDS: traZODone 50 MG TABLET PO SCH (22:15)
[2020-11-15] MEDS: methylPREDNISolone SOD SUC 40 MG/1 ML VIAL IV SCH ×2 (02:00→10:12)
[2020-11-15 05:33] LABS: Basophils % 0.3 % (0.0-0.8); Eosinophils % 0.2 % (0.00-10.9); Hematocrit 28.5 VOL% (35.7-47.0); Hemoglobin 9.1 GM/DL (12.0-16.0); Immature Granulocytes % 1.3 %; Immature Granulocytes Absolute 0.08 #; Lymphocytes # 0.4 10*3/uL (1.4-4.0); Lymphocytes % 5.9 % (21.3-54.2); Mean Corpuscular HGB Conc 31.9 GM/DL (32-36); Mean Corpuscular Volume 91.1 FL (87-102); Mean Platelet Volume 13.6 FL (9.6-12.0); Monocytes % 5.5 % (1.7-12.7); Neutrophils % 86.8 % (38.7-73.9); Platelet Count 46 T/CUMM (130-400); Red Blood Count 3.13 MC/CUMM (3.8-5.5); Red Cell Distribution Width 17.8 % (9.3-17.3); White Blood Count 6.2 T/CUMM (4-12)
[2020-11-15 05:53] LABS: Band Neutrophils 5 % (0-10); Hypochromasia 1+; Lymphocytes 9 % (20-55); Microcytosis 1+; Platelet Estimate Decreased; Segmented Neutrophils 84 % (50-85); Total Cells Counted 100
[2020-11-15 05:56] LABS: Calcium 7.4 MG/DL (8.5-10.1); Osmolality,Calculated 319.3 MOS/KG (273-304); Potassium 4.5 MMOL/L (3.5-5.1)
[2020-11-15] MEDS: VANCOMYCIN 50 MG/ML 60 ML/BOTTLE PO SCH ×3 (06:15→17:37)
[2020-11-15] MEDS: VALPROIC ACID 250 MG/5 ML UDCUP PO SCH ×4 (06:15→17:37)
[2020-11-15] MEDS: LEVOTHYROXINE 100 MCG VIAL IV SCH (06:30)
[2020-11-15] MEDS: INSULIN LISPRO 100 UNIT/ML SUBCUT SCH ×4 (06:30→17:37)
[2020-11-15] MEDS: LACTULOSE 20 GM/30 ML UDCUP PO SCH ×2 (10:12→21:00)
[2020-11-15] MEDS: ASCORBIC ACID 500 MG TABLET PO SCH ×2 (10:13→21:00)
[2020-11-15] MEDS: levETIRAcetam 500 MG TABLET PO SCH ×2 (10:13→21:00)
[2020-11-15] MEDS: ZINC GLUCONATE 50 MG TABLET PO SCH (10:13)
[2020-11-15] MEDS: CETIRIZINE 10 MG TABLET PO SCH (10:14)
[2020-11-15] MEDS: LORATADINE 10 MG TABLET PO SCH (10:14)
[2020-11-15] MEDS: CHOLECALCIFEROL 5,000 UNIT TABLET PO SCH ×2 (10:14→21:00)
[2020-11-15] MEDS: SERTRALINE 100 MG TABLET PO SCH (10:14)
[2020-11-15] MEDS: gemfibroziL 600 MG TABLET PO SCH ×2 (10:15→21:00)
[2020-11-15] MEDS: INSULIN GLARGINE 100 UNIT/ML SUBCUT SCH (10:16)
[2020-11-15] MEDS: MULTIVITAMIN LIQUID (CENTRUM) 60 ML BOTTLE PO SCH (11:25)
[2020-11-15] MEDS: MELATONIN 3 MG TABLET PO SCH (21:00)
[2020-11-15] MEDS: traZODone 50 MG TABLET PO SCH (21:00)
[2020-11-15] MEDS: GABAPENTIN 300 MG CAPSULE PO SCH (21:00)
[2020-11-16] MEDS: INSULIN LISPRO 100 UNIT/ML SUBCUT SCH ×5 (00:43→23:50)
[2020-11-16] MEDS: VALPROIC ACID 250 MG/5 ML UDCUP PO SCH ×5 (00:44→23:50)
[2020-11-16] MEDS: methylPREDNISolone SOD SUC 40 MG/1 ML VIAL IV SCH ×4 (01:04→17:32)
[2020-11-16 05:30] LABS: Basophils % 0.2 % (0.0-0.8); Eosinophils % 0.4 % (0.00-10.9); Hematocrit 30.3 VOL% (35.7-47.0); Hemoglobin 9.7 GM/DL (12.0-16.0); Immature Granulocytes Absolute 0.05 #; Lymphocytes # 0.5 10*3/uL (1.4-4.0); Lymphocytes % 10.7 % (21.3-54.2); Mean Corpuscular Volume 91.3 FL (87-102); Mean Platelet Volume 13.7 FL (9.6-12.0); Monocytes % 5.8 % (1.7-12.7); Neutrophils % 81.9 % (38.7-73.9); Red Blood Count 3.32 MC/CUMM (3.8-5.5); Red Cell Distribution Width 17.6 % (9.3-17.3)
[2020-11-16 05:34] LABS: Platelet Count 71 T/CUMM (130-400)
[2020-11-16 05:54] LABS: Band Neutrophils 11 % (0-10); Hypochromasia 1+; Lymphocytes 6 % (20-55); Metamyelocytes 1 %; Microcytosis 1+; Segmented Neutrophils 78 % (50-85); Tear Drop Cells Slight; Total Cells Counted 100
[2020-11-16 05:55] LABS: Platelet Estimate Decreased
[2020-11-16 05:57] LABS: Calcium 7.9 MG/DL (8.5-10.1); Osmolality,Calculated 320.8 MOS/KG (273-304); Potassium 4.6 MMOL/L (3.5-5.1)
[2020-11-16] MEDS: VANCOMYCIN 50 MG/ML 60 ML/BOTTLE PO SCH ×6 (06:15→23:50)
[2020-11-16] MEDS: LEVOTHYROXINE 100 MCG VIAL IV SCH (06:15)
[2020-11-16] MEDS: MICAFUNGIN 100 MG in SODIUM CHLORIDE 0.9% 100 ML IV SCH ×2 (09:21→17:37)
[2020-11-16] MEDS: gemfibroziL 600 MG TABLET PO SCH ×2 (09:23→21:15)
[2020-11-16] MEDS: ASCORBIC ACID 500 MG TABLET PO SCH ×2 (09:23→21:15)
[2020-11-16] MEDS: CETIRIZINE 10 MG TABLET PO SCH (09:23)
[2020-11-16] MEDS: levETIRAcetam 500 MG TABLET PO SCH ×2 (09:24→21:15)
[2020-11-16] MEDS: INSULIN GLARGINE 100 UNIT/ML SUBCUT SCH (09:24)
[2020-11-16] MEDS: LORATADINE 10 MG TABLET PO SCH (09:24)
[2020-11-16] MEDS: LACTULOSE 20 GM/30 ML UDCUP PO SCH ×2 (09:24→21:15)
[2020-11-16] MEDS: ZINC GLUCONATE 50 MG TABLET PO SCH (09:25)
[2020-11-16] MEDS: CHOLECALCIFEROL 5,000 UNIT TABLET PO SCH ×2 (09:25→21:15)
[2020-11-16] MEDS: ACETAMINOPHEN 325 MG TABLET PO PRN (09:40)
[2020-11-16] MEDS: MULTIVITAMIN LIQUID (CENTRUM) 60 ML BOTTLE PO SCH (10:02)
[2020-11-16] MEDS: SERTRALINE 100 MG TABLET PO SCH (10:02)
[2020-11-16] MEDS: LEVOFLOXACIN INJ 500 MG/100 ML PREMIX IV SCH (12:32)
[2020-11-16] MEDS: MELATONIN 3 MG TABLET PO SCH (21:15)
[2020-11-16] MEDS: traZODone 50 MG TABLET PO SCH (21:15)
[2020-11-16] MEDS: GABAPENTIN 300 MG CAPSULE PO SCH (21:15)
[2020-11-17] MEDS: methylPREDNISolone SOD SUC 40 MG/1 ML VIAL IV SCH ×3 (01:08→17:56)
[2020-11-17 05:49] LABS: Basophils % 0.2 % (0.0-0.8); Hematocrit 32.3 VOL% (35.7-47.0); Hemoglobin 10.4 GM/DL (12.0-16.0); Immature Granulocytes % 0.8 %; Immature Granulocytes Absolute 0.05 #; Lymphocytes # 0.6 10*3/uL (1.4-4.0); Lymphocytes % 9.7 % (21.3-54.2); Mean Corpuscular HGB Conc 32.2 GM/DL (32-36); Mean Corpuscular Volume 89.7 FL (87-102); Mean Platelet Volume 14.1 FL (9.6-12.0); Neutrophils % 82.3 % (38.7-73.9); Platelet Count 93 T/CUMM (130-400); Red Cell Distribution Width 17.2 % (9.3-17.3)
[2020-11-17] MEDS: VALPROIC ACID 250 MG/5 ML UDCUP PO SCH ×3 (05:54→17:47)
[2020-11-17] MEDS: VANCOMYCIN 50 MG/ML 60 ML/BOTTLE PO SCH ×3 (05:55→17:47)
[2020-11-17] MEDS: INSULIN LISPRO 100 UNIT/ML SUBCUT SCH ×3 (05:55→17:46)
[2020-11-17] MEDS: LEVOTHYROXINE 100 MCG VIAL IV SCH (05:55)
[2020-11-17 06:09] LABS: Band Neutrophils 3 % (0-10); Lymphocytes 13 % (20-55); Platelet Estimate Decreased; Segmented Neutrophils 83 % (50-85); Total Cells Counted 100
[2020-11-17 06:20] LABS: Osmolality,Calculated 319.1 MOS/KG (273-304); Potassium 4.8 MMOL/L (3.5-5.1)
[2020-11-17] MEDS: LACTULOSE 20 GM/30 ML UDCUP PO SCH ×2 (08:45→20:59)
[2020-11-17] MEDS: ASCORBIC ACID 500 MG TABLET PO SCH ×2 (08:46→21:00)
[2020-11-17] MEDS: levETIRAcetam 500 MG TABLET PO SCH ×2 (08:46→21:00)
[2020-11-17] MEDS: INSULIN GLARGINE 100 UNIT/ML SUBCUT SCH (08:46)
[2020-11-17] MEDS: LORATADINE 10 MG TABLET PO SCH (08:47)
[2020-11-17] MEDS: CETIRIZINE 10 MG TABLET PO SCH (08:47)
[2020-11-17] MEDS: ZINC GLUCONATE 50 MG TABLET PO SCH (08:47)
[2020-11-17] MEDS: CHOLECALCIFEROL 5,000 UNIT TABLET PO SCH ×2 (08:47→21:00)
[2020-11-17] MEDS: SERTRALINE 100 MG TABLET PO SCH (08:47)
[2020-11-17] MEDS: MULTIVITAMIN LIQUID (CENTRUM) 60 ML BOTTLE PO SCH (08:47)
[2020-11-17] MEDS: gemfibroziL 600 MG TABLET PO SCH ×2 (08:47→21:01)
[2020-11-17] MEDS: MICAFUNGIN 100 MG in SODIUM CHLORIDE 0.9% 100 ML IV SCH (17:47)
[2020-11-17] MEDS: GABAPENTIN 300 MG CAPSULE PO SCH (21:00)
[2020-11-17] MEDS: MELATONIN 3 MG TABLET PO SCH (21:00)
[2020-11-17] MEDS: traZODone 50 MG TABLET PO SCH (21:00)
[2020-11-18] MEDS: methylPREDNISolone SOD SUC 40 MG/1 ML VIAL IV SCH ×3 (00:50→18:24)
[2020-11-18] MEDS: VANCOMYCIN 50 MG/ML 60 ML/BOTTLE PO SCH ×4 (00:50→18:30)
[2020-11-18] MEDS: INSULIN LISPRO 100 UNIT/ML SUBCUT SCH ×4 (00:50→18:24)
[2020-11-18] MEDS: VALPROIC ACID 250 MG/5 ML UDCUP PO SCH ×4 (00:50→18:29)
[2020-11-18 05:19] LABS: Basophils % 0.1 % (0.0-0.8); Eosinophils % 0.1 % (0.00-10.9); Hemoglobin 10.7 GM/DL (12.0-16.0); Immature Granulocytes % 0.6 %; Immature Granulocytes Absolute 0.05 #; Lymphocytes # 0.5 10*3/uL (1.4-4.0); Lymphocytes % 6.8 % (21.3-54.2); Mean Corpuscular HGB Conc 31.5 GM/DL (32-36); Mean Corpuscular Volume 91.2 FL (87-102); Mean Platelet Volume 14.1 FL (9.6-12.0); Monocytes % 9.7 % (1.7-12.7); Neutrophils % 82.7 % (38.7-73.9); Platelet Count 102 T/CUMM (130-400); Red Blood Count 3.73 MC/CUMM (3.8-5.5); White Blood Count 7.9 T/CUMM (4-12)
[2020-11-18 05:34] LABS: Calcium 8.6 MG/DL (8.5-10.1); Osmolality,Calculated 318.8 MOS/KG (273-304); Potassium 4.2 MMOL/L (3.5-5.1)
[2020-11-18 05:59] LABS: Band Neutrophils 9 % (0-10); Hypochromasia 1+; Lymphocytes 6 % (20-55); Metamyelocytes 1 %; Microcytosis 1+; Segmented Neutrophils 77 % (50-85); Total Cells Counted 100
[2020-11-18] MEDS: LEVOTHYROXINE 100 MCG VIAL IV SCH (06:25)
[2020-11-18] MEDS: LACTULOSE 20 GM/30 ML UDCUP PO SCH ×2 (08:10→21:28)
[2020-11-18] MEDS: ASCORBIC ACID 500 MG TABLET PO SCH ×2 (08:10→21:26)
[2020-11-18] MEDS: MULTIVITAMIN LIQUID (CENTRUM) 60 ML BOTTLE PO SCH (08:10)
[2020-11-18] MEDS: ZINC GLUCONATE 50 MG TABLET PO SCH (08:10)
[2020-11-18] MEDS: LORATADINE 10 MG TABLET PO SCH (08:10)
[2020-11-18] MEDS: CETIRIZINE 10 MG TABLET PO SCH (08:10)
[2020-11-18] MEDS: CHOLECALCIFEROL 5,000 UNIT TABLET PO SCH ×2 (08:10→21:27)
[2020-11-18] MEDS: METOPROLOL TARTRATE 5 MG/5 ML VIAL IV PRN ×2 (08:11→16:38)
[2020-11-18] MEDS: levETIRAcetam 500 MG TABLET PO SCH ×2 (08:12→21:27)
[2020-11-18] MEDS: SERTRALINE 100 MG TABLET PO SCH (08:12)
[2020-11-18] MEDS: INSULIN GLARGINE 100 UNIT/ML SUBCUT SCH (08:12)
[2020-11-18] MEDS: gemfibroziL 600 MG TABLET PO SCH ×2 (08:13→21:33)
[2020-11-18 16:54] LABS: ABG Base Excess -10.6 MMOL/L (-2.5-2.5); ABG HCO3 14.5 MMOL/L (20-26); ABG Oxygen Saturation 95.3 % (95-100); ABG PCO2 29.8 MM HG (35-48); ABG PH 7.304 (7.35-7.45); ABG PO2 87.3 MM HG (80-95); ABG TCO2 15.4 MMOL/L (23-27)
[2020-11-18] MEDS ORDERED: VANCOMYCIN INJ 1,750 MG in SODIUM CHLORIDE 0.9% 500 ML IV ONE (17:00)
[2020-11-18] MEDS ORDERED: SODIUM BICARBONATE 50 MEQ/50 ML VIAL IV ONE (17:01)
[2020-11-18] MEDS ORDERED: SODIUM BICARB IV ONE (17:30)
[2020-11-18 17:35] LABS: Basophils % 0.1 % (0.0-0.8); Eosinophils % 0.1 % (0.00-10.9); Hematocrit 37.8 VOL% (35.7-47.0); Hemoglobin 11.6 GM/DL (12.0-16.0); Immature Granulocytes % 0.5 %; Immature Granulocytes Absolute 0.05 #; Lymphocytes # 0.7 10*3/uL (1.4-4.0); Lymphocytes % 7.1 % (21.3-54.2); Mean Corpuscular HGB Conc 30.7 GM/DL (32-36); Mean Corpuscular Volume 92.4 FL (87-102); Mean Platelet Volume 13.9 FL (9.6-12.0); Monocytes % 9.5 % (1.7-12.7); Neutrophils % 82.7 % (38.7-73.9); Platelet Count 147 T/CUMM (130-400); Red Blood Count 4.09 MC/CUMM (3.8-5.5); Red Cell Distribution Width 17.1 % (9.3-17.3); White Blood Count 9.3 T/CUMM (4-12)
[2020-11-18 17:47] LABS: Glucose,CSF 176 MG/DL (40-70)
[2020-11-18 17:55] LABS: Albumin 1.9 G/DL (3.4-5.0); Bilirubin,Total 0.5 MG/DL (0.20-1.00); Calcium 8.3 MG/DL (8.5-10.1); Osmolality,Calculated 319.4 MOS/KG (273-304); Potassium 4.4 MMOL/L (3.5-5.1); Total Protein 6.9 G/DL (6.4-8.2)
[2020-11-18 18:08] LABS: Lymphocytes,CSF 50 %; Neutrophils,CSF 50 %
[2020-11-18 18:09] LABS: Appearance,CSF Clear; Red Blood Cell,CSF 2 C/CUMM; White Blood Cell,CSF 2 C/CUMM
[2020-11-18] MEDS: SODIUM BICARB INJ 150 MEQ in STERILE WATER INJ 1,000 ML IV SCH (18:15)
[2020-11-18] MEDS: CLINDAMYCIN INJ 600 MG/50 ML PREMIX IV SCH (18:24)
[2020-11-18] MEDS ORDERED: DIGOXIN 0.5 MG/2 ML AMP IV ONE (18:46)
[2020-11-18 18:51] LABS: Band Neutrophils 8 % (0-10); Lymphocytes 9 % (20-55); Metamyelocytes 1 %; Segmented Neutrophils 73 % (50-85); Total Cells Counted 100
[2020-11-18 18:53] LABS: Hypochromasia 1+
[2020-11-18] MEDS ORDERED: ETOMIDATE 20 MG/10 ML VIAL IV ONE ×4 (20:15→21:04)
[2020-11-18] MEDS ORDERED: ROCURONIUM 100 MG/10 ML VIAL IV ONE ×3 (20:16→21:05)
[2020-11-18] MEDS ORDERED: NOREPINEPHRINE 4 MG/4 ML VIAL IV ONE (20:23)
[2020-11-18 20:27] LABS: ABG Base Excess -3.2 MMOL/L (-2.5-2.5); ABG HCO3 21.6 MMOL/L (20-26); ABG Oxygen Saturation 87.2 % (95-100); ABG PCO2 30.8 MM HG (35-48); ABG PH 7.427 (7.35-7.45); ABG PO2 55.9 MM HG (80-95); ABG TCO2 18.3 MMOL/L (23-27)
[2020-11-18] MEDS ORDERED: METOPROLOL TARTRATE 5 MG/5 ML VIAL IV ONE (21:03)
[2020-11-18] MEDS ORDERED: PHENYLEPHRINE INJ 80 MG in SODIUM CHLORIDE 0.9% 242 ML IV PRN (21:04)
[2020-11-18] MEDS ORDERED: NOREPINEPHRINE 8 MG in SODIUM CHLORIDE 0.9% 242 ML IV PRN (21:07)
[2020-11-18] MEDS: MELATONIN 3 MG TABLET PO SCH (21:27)
[2020-11-18] MEDS: traZODone 50 MG TABLET PO SCH (21:27)
[2020-11-18] MEDS: GABAPENTIN 300 MG CAPSULE PO SCH (21:27)
[2020-11-18] MEDS ORDERED: HYDROCORTISONE 100 MG VIAL IV ONE (21:27)
[2020-11-18] MEDS: ACETAMINOPHEN 325 MG TABLET PO PRN (21:34)
[2020-11-18 22:21] LABS: ABG HCO3 19.6 MMOL/L (20-26); ABG Oxygen Saturation 99.4 % (95-100); ABG PCO2 40.1 MM HG (35-48); ABG PH 7.306 (7.35-7.45)
[2020-11-18] MEDS: NOREPINEPHRINE 16 MG in SODIUM CHLORIDE 0.9% 234 ML IV PRN (23:19)
[2020-11-19] MEDS: VALPROIC ACID 250 MG/5 ML UDCUP PO SCH ×4 (02:39→17:15)
[2020-11-19] MEDS: INSULIN LISPRO 100 UNIT/ML SUBCUT SCH ×4 (02:40→17:43)
[2020-11-19] MEDS: VANCOMYCIN 50 MG/ML 60 ML/BOTTLE PO SCH ×4 (02:40→17:17)
[2020-11-19] MEDS: CLINDAMYCIN INJ 600 MG/50 ML PREMIX IV SCH ×4 (02:41→17:16)
[2020-11-19] MEDS: methylPREDNISolone SOD SUC 40 MG/1 ML VIAL IV SCH ×3 (02:42→17:15)
[2020-11-19] MEDS: NOREPINEPHRINE 16 MG in SODIUM CHLORIDE 0.9% 234 ML IV PRN ×3 (03:30→16:47)
[2020-11-19 04:37] LABS: ABG Base Excess -10.2 MMOL/L (-2.5-2.5); ABG HCO3 16.4 MMOL/L (20-26); ABG Oxygen Saturation 98.6 % (95-100); ABG PH 7.268 (7.35-7.45); ABG TCO2 14.4 MMOL/L (23-27); Allen Test Positive; Pt O2 Delivery Device Ventilator
[2020-11-19 05:57] LABS: Basophils # 0.1 10*3/uL (0.0-0.2); Basophils % 0.3 % (0.0-0.8); Hematocrit 35.7 VOL% (35.7-47.0); Hemoglobin 10.7 GM/DL (12.0-16.0); Immature Granulocytes % 1.6 %; Immature Granulocytes Absolute 0.38 #; Lymphocytes # 1.4 10*3/uL (1.4-4.0); Lymphocytes % 5.7 % (21.3-54.2); Mean Corpuscular Volume 94.4 FL (87-102); Mean Platelet Volume 13.4 FL (9.6-12.0); Monocytes % 7.3 % (1.7-12.7); NRBC # 0.02 10*3/uL; Neutrophils % 85.1 % (38.7-73.9); Platelet Count 173 T/CUMM (130-400); Red Blood Count 3.78 MC/CUMM (3.8-5.5); Red Cell Distribution Width 17.2 % (9.3-17.3)
[2020-11-19 06:03] LABS: Albumin 1.7 G/DL (3.4-5.0); Bilirubin,Total 1.9 MG/DL (0.20-1.00); Calcium 7.6 MG/DL (8.5-10.1); Potassium 4.4 MMOL/L (3.5-5.1); Total Protein 6.3 G/DL (6.4-8.2)
[2020-11-19] MEDS: LEVOTHYROXINE 100 MCG VIAL IV SCH (06:06)
[2020-11-19 07:02] LABS: Anisocytosis Slight; Band Neutrophils 58 % (0-10); Lymphocytes 6 % (20-55); Metamyelocytes 10 %; Myelocytes 3 %; Nucleated Red Blood Cells 1 (0-5); Platelet Estimate Normal; Segmented Neutrophils 21 % (50-85); Spherocytes Few; Total Cells Counted 100
[2020-11-19 07:03] LABS: Misc Morphology 5S; Smudge Cells 1+
[2020-11-19] MEDS: LACTULOSE 20 GM/30 ML UDCUP PO SCH ×2 (08:25→21:43)
[2020-11-19] MEDS: INSULIN GLARGINE 100 UNIT/ML SUBCUT SCH (08:25)
[2020-11-19] MEDS: levETIRAcetam 500 MG TABLET PO SCH ×2 (08:26→21:42)
[2020-11-19] MEDS: CHOLECALCIFEROL 5,000 UNIT TABLET PO SCH ×2 (08:26→21:43)
[2020-11-19] MEDS: ZINC GLUCONATE 50 MG TABLET PO SCH (08:26)
[2020-11-19] MEDS: CETIRIZINE 10 MG TABLET PO SCH (08:26)
[2020-11-19] MEDS: SERTRALINE 100 MG TABLET PO SCH (08:26)
[2020-11-19] MEDS: gemfibroziL 600 MG TABLET PO SCH ×2 (08:27→21:42)
[2020-11-19] MEDS: LORATADINE 10 MG TABLET PO SCH (08:27)
[2020-11-19] MEDS: ASCORBIC ACID 500 MG TABLET PO SCH ×2 (08:27→21:42)
[2020-11-19] MEDS: MICAFUNGIN 100 MG in SODIUM CHLORIDE 0.9% 100 ML IV SCH (09:38)
[2020-11-19] MEDS: SODIUM BICARB INJ 150 MEQ in STERILE WATER INJ 1,000 ML IV SCH (10:25)
[2020-11-19] MEDS: MULTIVITAMIN LIQUID (CENTRUM) 60 ML BOTTLE PO SCH (10:46)
[2020-11-19] MEDS ORDERED: SODIUM BICARBONATE 50 MEQ/50 ML VIAL IV ONE (11:11)
[2020-11-19] MEDS: ALBUMIN 25% 12.5 GM/50 ML VIAL IV SCH ×2 (11:15→18:13)
[2020-11-19] MEDS: SODIUM BICARB INJ 150 MEQ in DEXTROSE 5% 1,000 ML IV SCH (11:25)
[2020-11-19] MEDS: LACTATED RINGERS 1,000 ML IV ONE ×2 (11:30→14:50)
[2020-11-19] MEDS ORDERED: SODIUM CHLORIDE 0.9% 500 ML IV ONE (11:30)
[2020-11-19] MEDS ORDERED: ATROPINE 1 MG/10 ML SYRINGE IV ONE (14:58)
[2020-11-19 16:11] LABS: ABG Base Excess -2.9 MMOL/L (-2.5-2.5); ABG PCO2 32.4 MM HG (35-48); ABG PH 7.429 (7.35-7.45); ABG PO2 146.6 MM HG (80-95); Allen Test Positive; Pt O2 Delivery Device Ventilator
[2020-11-19 16:53] LABS: Calcium 6.4 MG/DL (8.5-10.1); Osmolality,Calculated 331.7 MOS/KG (273-304); Potassium 3.7 MMOL/L (3.5-5.1)
[2020-11-19] MEDS ORDERED: VANCOMYCIN INJ 1,500 MG in SODIUM CHLORIDE 0.9% 500 ML IV PRN (18:00)
[2020-11-19] MEDS ORDERED: VANCOMYCIN INJ 1,750 MG in SODIUM CHLORIDE 0.9% 500 ML IV ONE (19:30)
[2020-11-19] MEDS: MELATONIN 3 MG TABLET PO SCH (21:41)
[2020-11-19] MEDS: GABAPENTIN 300 MG CAPSULE PO SCH (21:41)
[2020-11-19] MEDS: traZODone 50 MG TABLET PO SCH (21:42)
[2020-11-20] MEDS: INSULIN LISPRO 100 UNIT/ML SUBCUT SCH ×7 (00:26→21:35)
[2020-11-20] MEDS: VANCOMYCIN 50 MG/ML 60 ML/BOTTLE PO SCH ×4 (00:27→17:09)
[2020-11-20] MEDS: VALPROIC ACID 250 MG/5 ML UDCUP PO SCH ×4 (00:27→17:08)
[2020-11-20] MEDS: methylPREDNISolone SOD SUC 40 MG/1 ML VIAL IV SCH ×3 (00:28→17:09)
[2020-11-20] MEDS: CLINDAMYCIN INJ 600 MG/50 ML PREMIX IV SCH ×3 (01:13→17:09)
[2020-11-20] MEDS: ALBUMIN 25% 12.5 GM/50 ML VIAL IV SCH (03:00)
[2020-11-20] MEDS: SODIUM BICARB INJ 150 MEQ in DEXTROSE 5% 1,000 ML IV SCH ×2 (03:15→04:38)
[2020-11-20 04:33] LABS: ABG Base Excess -0.6 MMOL/L (-2.5-2.5); ABG Oxygen Saturation 99.3 % (95-100); ABG PCO2 33.3 MM HG (35-48); ABG PH 7.449 (7.35-7.45); ABG TCO2 21.8 MMOL/L (23-27)
[2020-11-20 05:37] LABS: Albumin 1.7 G/DL (3.4-5.0); Bilirubin,Total 1.7 MG/DL (0.20-1.00); Calcium 6.3 MG/DL (8.5-10.1); Osmolality,Calculated 333.3 MOS/KG (273-304); Total Protein 5.1 G/DL (6.4-8.2)
[2020-11-20 05:46] LABS: Basophils % 0.2 % (0.0-0.8); Hematocrit 21.8 VOL% (35.7-47.0); Immature Granulocytes % 2.5 %; Immature Granulocytes Absolute 0.28 #; Lymphocytes # 0.4 10*3/uL (1.4-4.0); Lymphocytes % 3.3 % (21.3-54.2); Mean Corpuscular HGB Conc 32.1 GM/DL (32-36); Mean Corpuscular Volume 91.2 FL (87-102); Monocytes % 4.8 % (1.7-12.7); NRBC # 0.02 10*3/uL; Neutrophils % 89.2 % (38.7-73.9)
[2020-11-20 06:06] LABS: Red Blood Count 2.39 MC/CUMM (3.8-5.5); White Blood Count 11.3 T/CUMM (4-12)
[2020-11-20 06:07] LABS: Platelet Count 127 T/CUMM (130-400)
[2020-11-20] MEDS: POTASSIUM BICARB EFFERVESCENT 20 MEQ TAB.EFF PER TUBE PRN ×3 (06:33→10:46)
[2020-11-20] MEDS: LEVOTHYROXINE 100 MCG VIAL IV SCH (06:42)
[2020-11-20] MEDS: MICAFUNGIN 100 MG in SODIUM CHLORIDE 0.9% 100 ML IV SCH (06:43)
[2020-11-20 06:55] LABS: Anisocytosis 1+; Band Neutrophils 66 % (0-10); Lymphocytes 3 % (20-55); Metamyelocytes 5 %; Platelet Estimate Adequate; Segmented Neutrophils 24 % (50-85); Smudge Cells 1+; Total Cells Counted 100
[2020-11-20 06:56] LABS: Macrocytosis Slight
[2020-11-20] MEDS: CETIRIZINE 10 MG TABLET PO SCH (08:18)
[2020-11-20] MEDS: SERTRALINE 100 MG TABLET PO SCH (08:18)
[2020-11-20] MEDS: levETIRAcetam 500 MG TABLET PO SCH ×2 (08:18→21:34)
[2020-11-20] MEDS: ZINC GLUCONATE 50 MG TABLET PO SCH (08:18)
[2020-11-20] MEDS: ASCORBIC ACID 500 MG TABLET PO SCH ×2 (08:18→21:34)
[2020-11-20] MEDS: CHOLECALCIFEROL 5,000 UNIT TABLET PO SCH ×2 (08:18→21:34)
[2020-11-20] MEDS: LACTULOSE 20 GM/30 ML UDCUP PO SCH ×2 (08:18→21:33)
[2020-11-20] MEDS: gemfibroziL 600 MG TABLET PO SCH ×2 (08:19→21:34)
[2020-11-20] MEDS: INSULIN GLARGINE 100 UNIT/ML SUBCUT SCH (08:19)
[2020-11-20] MEDS: LORATADINE 10 MG TABLET PO SCH (08:20)
[2020-11-20] MEDS: MULTIVITAMIN LIQUID (CENTRUM) 60 ML BOTTLE PO SCH (08:20)
[2020-11-20] MEDS ORDERED: SODIUM CHLORIDE 0.9% 1,000 ML IV PRN (09:18)
[2020-11-20 09:24] LABS: Basophils % 0.1 % (0.0-0.8); Hematocrit 21.5 VOL% (35.7-47.0); Immature Granulocytes % 3.2 %; Immature Granulocytes Absolute 0.32 #; Lymphocytes # 0.3 10*3/uL (1.4-4.0); Lymphocytes % 3.2 % (21.3-54.2); Mean Corpuscular HGB Conc 32.6 GM/DL (32-36); Mean Corpuscular Volume 90.3 FL (87-102); Mean Platelet Volume 12.8 FL (9.6-12.0); Monocytes % 4.9 % (1.7-12.7); NRBC # 0.02 10*3/uL; Neutrophils % 88.6 % (38.7-73.9); Platelet Count 123 T/CUMM (130-400); Red Blood Count 2.38 MC/CUMM (3.8-5.5); Red Cell Distribution Width 17.3 % (9.3-17.3); White Blood Count 10.1 T/CUMM (4-12)
[2020-11-20] MEDS ORDERED: INSULIN GLARGINE 100 UNIT/ML SUBCUT SCH (09:30)
[2020-11-20 09:46] LABS: Band Neutrophils 44 % (0-10); Lymphocytes 5 % (20-55); Metamyelocytes 5 %; Nucleated Red Blood Cells 3 (0-5); Segmented Neutrophils 43 % (50-85); Total Cells Counted 100
[2020-11-20 09:47] LABS: Anisocytosis 1+; Macrocytosis Slight; Platelet Estimate Adequate; Smudge Cells 1+
[2020-11-20 13:40] LABS: Hematocrit 27.8 VOL% (35.7-47.0)
[2020-11-20 14:17] VITALS: BP 110/56
[2020-11-20] MEDS ORDERED: INSULIN LISPRO 100 UNIT/ML ONE (21:24)
[2020-11-20] MEDS: MELATONIN 3 MG TABLET PO SCH (21:34)
[2020-11-20] MEDS: traZODone 50 MG TABLET PO SCH (21:34)
[2020-11-20] MEDS: GABAPENTIN 300 MG CAPSULE PO SCH (21:34)
[2020-11-20] MEDS: POTASSIUM CHLORIDE 20 MEQ TABLET PO PRN (23:03)
[2020-11-21] MEDS ORDERED: SODIUM BICARB INJ 150 MEQ in DEXTROSE 5% 1,000 ML IV SCH
[2020-11-21] MEDS: methylPREDNISolone SOD SUC 40 MG/1 ML VIAL IV SCH ×3 (01:03→17:47)
[2020-11-21] MEDS: INSULIN LISPRO 100 UNIT/ML SUBCUT SCH ×6 (01:04→21:50)
[2020-11-21 01:25] LABS: Basophils % 0.3 % (0.0-0.8); Hematocrit 26.6 VOL% (35.7-47.0); Hemoglobin 8.5 GM/DL (12.0-16.0); Immature Granulocytes % 1.3 %; Lymphocytes # 0.4 10*3/uL (1.4-4.0); Lymphocytes % 5.1 % (21.3-54.2); Mean Corpuscular Volume 90.5 FL (87-102); Mean Platelet Volume 12.8 FL (9.6-12.0); Monocytes % 6.2 % (1.7-12.7); NRBC # 0.04 10*3/uL; Neutrophils % 87.1 % (38.7-73.9); Platelet Count 131 T/CUMM (130-400); Red Blood Count 2.94 MC/CUMM (3.8-5.5); Red Cell Distribution Width 16.3 % (9.3-17.3); White Blood Count 7.4 T/CUMM (4-12)
[2020-11-21] MEDS: CLINDAMYCIN INJ 600 MG/50 ML PREMIX IV SCH ×2 (01:28→09:00)
[2020-11-21] MEDS: VALPROIC ACID 250 MG/5 ML UDCUP PO SCH ×5 (01:28→21:50)
[2020-11-21] MEDS: VANCOMYCIN 50 MG/ML 60 ML/BOTTLE PO SCH ×4 (01:28→18:21)
[2020-11-21] MEDS: POTASSIUM CHLORIDE 20 MEQ TABLET PO PRN ×3 (01:49→06:40)
[2020-11-21 03:04] LABS: Band Neutrophils 12 % (0-10); Lymphocytes 4 % (20-55); Nucleated Red Blood Cells 1 (0-5); Segmented Neutrophils 79 % (50-85); Total Cells Counted 100
[2020-11-21 03:05] LABS: Anisocytosis 1+; Hypochromasia 1+; Microcytosis 1+; Tear Drop Cells Slight
[2020-11-21 03:06] LABS: Platelet Estimate Adequate
[2020-11-21 03:55] LABS: Basophils % 0.4 % (0.0-0.8); Hematocrit 27.6 VOL% (35.7-47.0); Hemoglobin 8.8 GM/DL (12.0-16.0); Immature Granulocytes % 0.8 %; Immature Granulocytes Absolute 0.08 #; Lymphocytes # 0.4 10*3/uL (1.4-4.0); Mean Corpuscular HGB Conc 31.9 GM/DL (32-36); Mean Corpuscular Volume 90.8 FL (87-102); Mean Platelet Volume 12.6 FL (9.6-12.0); Monocytes % 6.6 % (1.7-12.7); NRBC # 0.04 10*3/uL; Neutrophils % 88.2 % (38.7-73.9); Platelet Count 142 T/CUMM (130-400); Red Blood Count 3.04 MC/CUMM (3.8-5.5); Red Cell Distribution Width 16.2 % (9.3-17.3); White Blood Count 9.5 T/CUMM (4-12)
[2020-11-21 04:20] LABS: Albumin 1.6 G/DL (3.4-5.0); Bilirubin,Total 1.3 MG/DL (0.20-1.00); Calcium 7.3 MG/DL (8.5-10.1); Osmolality,Calculated 316.6 MOS/KG (273-304); Total Protein 5.7 G/DL (6.4-8.2)
[2020-11-21 04:21] LABS: Band Neutrophils 3 % (0-10); Hypochromasia 1+; Lymphocytes 3 % (20-55); Microcytosis 1+; Platelet Estimate Adequate; Segmented Neutrophils 87 % (50-85); Total Cells Counted 100
[2020-11-21] MEDS: MICAFUNGIN 100 MG in SODIUM CHLORIDE 0.9% 100 ML IV SCH (05:04)
[2020-11-21 05:09] LABS: ABG Base Excess 2.9 MMOL/L (-2.5-2.5); ABG HCO3 26.3 MMOL/L (20-26); ABG Oxygen Saturation 92.7 % (95-100); ABG PCO2 35.1 MM HG (35-48); ABG PH 7.492 (7.35-7.45); ABG PO2 66.2 MM HG (80-95); ABG TCO2 27.3 MMOL/L (23-27)
[2020-11-21] MEDS: LEVOTHYROXINE 100 MCG VIAL IV SCH (05:40)
[2020-11-21] MEDS: levETIRAcetam 500 MG TABLET PO SCH ×2 (09:28→21:51)
[2020-11-21] MEDS: gemfibroziL 600 MG TABLET PO SCH ×2 (09:28→21:53)
[2020-11-21] MEDS: BACILLUS COAGULANS CAPLET PO SCH (09:28)
[2020-11-21] MEDS: MULTIVITAMIN LIQUID (CENTRUM) 60 ML BOTTLE PO SCH (09:28)
[2020-11-21] MEDS: LORATADINE 10 MG TABLET PO SCH (09:28)
[2020-11-21] MEDS: LACTULOSE 20 GM/30 ML UDCUP PO SCH ×2 (09:28→21:51)
[2020-11-21] MEDS: SERTRALINE 100 MG TABLET PO SCH (09:29)
[2020-11-21] MEDS: ZINC GLUCONATE 50 MG TABLET PO SCH (09:29)
[2020-11-21] MEDS: ASCORBIC ACID 500 MG TABLET PO SCH ×2 (09:29→21:53)
[2020-11-21] MEDS: CETIRIZINE 10 MG TABLET PO SCH (09:29)
[2020-11-21] MEDS: CHOLECALCIFEROL 5,000 UNIT TABLET PO SCH ×2 (09:29→21:55)
[2020-11-21] MEDS: ALBUMIN 25% 12.5 GM/50 ML VIAL IV SCH ×2 (10:47→16:30)
[2020-11-21] MEDS: POTASSIUM BICARB EFFERVESCENT 20 MEQ TAB.EFF PER TUBE PRN ×3 (10:50→15:30)
[2020-11-21] MEDS: INSULIN GLARGINE 100 UNIT/ML SUBCUT SCH (10:50)
[2020-11-21] MEDS: metroNIDAZOLE INJ 500 MG/100 ML PREMIX IV SCH ×2 (12:57→21:49)
[2020-11-21] MEDS: PANTOPRAZOLE 40 MG VIAL IV SCH (12:58)
[2020-11-21] MEDS: GABAPENTIN 300 MG CAPSULE PO SCH (21:52)
[2020-11-21] MEDS: MELATONIN 3 MG TABLET PO SCH (21:52)
[2020-11-21] MEDS: traZODone 50 MG TABLET PO SCH (21:53)
[2020-11-22] MEDS: methylPREDNISolone SOD SUC 40 MG/1 ML VIAL IV SCH ×3 (00:29→17:33)
[2020-11-22] MEDS: ALBUMIN 25% 12.5 GM/50 ML VIAL IV SCH ×2 (00:30→08:08)
[2020-11-22] MEDS: VANCOMYCIN 50 MG/ML 60 ML/BOTTLE PO SCH ×4 (00:45→17:34)
[2020-11-22] MEDS: INSULIN LISPRO 100 UNIT/ML SUBCUT SCH ×6 (01:10→21:17)
[2020-11-22 04:16] LABS: ABG Base Excess 0.6 MMOL/L (-2.5-2.5); ABG HCO3 24.7 MMOL/L (20-26); ABG Oxygen Saturation 97.7 % (95-100); ABG PCO2 37.9 MM HG (35-48); ABG PH 7.432 (7.35-7.45); ABG PO2 117.7 MM HG (80-95); ABG TCO2 25.9 MMOL/L (23-27)
[2020-11-22] MEDS: metroNIDAZOLE INJ 500 MG/100 ML PREMIX IV SCH ×3 (04:20→21:05)
[2020-11-22] MEDS: MICAFUNGIN 100 MG in SODIUM CHLORIDE 0.9% 100 ML IV SCH (05:05)
[2020-11-22 05:35] LABS: Bilirubin,Total 0.8 MG/DL (0.20-1.00); Calcium 7.5 MG/DL (8.5-10.1); Osmolality,Calculated 317.4 MOS/KG (273-304); Potassium 3.9 MMOL/L (3.5-5.1); Total Protein 5.3 G/DL (6.4-8.2)
[2020-11-22 06:23] LABS: Basophils % 0.3 % (0.0-0.8); Hematocrit 26.4 VOL% (35.7-47.0); Hemoglobin 8.5 GM/DL (12.0-16.0); Immature Granulocytes % 1.8 %; Immature Granulocytes Absolute 0.17 #; Lymphocytes # 0.3 10*3/uL (1.4-4.0); Lymphocytes % 2.6 % (21.3-54.2); Mean Corpuscular HGB Conc 32.2 GM/DL (32-36); Mean Platelet Volume 12.7 FL (9.6-12.0); Monocytes % 4.7 % (1.7-12.7); NRBC # 0.06 10*3/uL; Neutrophils % 90.6 % (38.7-73.9); Platelet Count 158 T/CUMM (130-400); Red Cell Distribution Width 16.5 % (9.3-17.3); White Blood Count 9.7 T/CUMM (4-12)
[2020-11-22] MEDS: LEVOTHYROXINE 100 MCG VIAL IV SCH (06:27)
[2020-11-22 06:49] LABS: Band Neutrophils 7 % (0-10); Hypochromasia 1+; Microcytosis 1+; Nucleated Red Blood Cells 1 (0-5); Platelet Estimate Adequate; Segmented Neutrophils 84 % (50-85); Total Cells Counted 100
[2020-11-22] MEDS: NOREPINEPHRINE 16 MG in SODIUM CHLORIDE 0.9% 234 ML IV PRN (07:00)
[2020-11-22] MEDS: PANTOPRAZOLE 40 MG VIAL IV SCH (08:08)
[2020-11-22] MEDS: gemfibroziL 600 MG TABLET PO SCH ×2 (08:09→21:04)
[2020-11-22] MEDS: BACILLUS COAGULANS CAPLET PO SCH (08:09)
[2020-11-22] MEDS: CETIRIZINE 10 MG TABLET PO SCH (08:09)
[2020-11-22] MEDS: ZINC GLUCONATE 50 MG TABLET PO SCH (08:09)
[2020-11-22] MEDS: CHOLECALCIFEROL 5,000 UNIT TABLET PO SCH ×2 (08:10→21:04)
[2020-11-22] MEDS: LORATADINE 10 MG TABLET PO SCH (08:10)
[2020-11-22] MEDS: ASCORBIC ACID 500 MG TABLET PO SCH ×2 (08:10→21:04)
[2020-11-22] MEDS: levETIRAcetam 500 MG TABLET PO SCH ×2 (08:11→21:04)
[2020-11-22] MEDS: VALPROIC ACID 250 MG/5 ML UDCUP PO SCH ×3 (08:11→21:51)
[2020-11-22] MEDS: LACTULOSE 20 GM/30 ML UDCUP PO SCH ×2 (08:11→21:03)
[2020-11-22] MEDS: INSULIN GLARGINE 100 UNIT/ML SUBCUT SCH (08:12)
[2020-11-22] MEDS: SERTRALINE 100 MG TABLET PO SCH (08:13)
[2020-11-22] MEDS: MULTIVITAMIN LIQUID (CENTRUM) 60 ML BOTTLE PO SCH (08:14)
[2020-11-22] MEDS: POTASSIUM BICARB EFFERVESCENT 20 MEQ TAB.EFF PER TUBE PRN (08:20)
[2020-11-22] MEDS ORDERED: VANCOMYCIN INJ 1,750 MG in SODIUM CHLORIDE 0.9% 500 ML IV PRN (11:00)
[2020-11-22] MEDS ORDERED: VANCOMYCIN INJ 1,750 MG in SODIUM CHLORIDE 0.9% 500 ML IV ONE (12:00)
[2020-11-22] MEDS: GABAPENTIN 300 MG CAPSULE PO SCH (21:03)
[2020-11-22] MEDS: traZODone 50 MG TABLET PO SCH (21:03)
[2020-11-22] MEDS: MELATONIN 3 MG TABLET PO SCH (21:03)
[2020-11-23] MEDS: INSULIN LISPRO 100 UNIT/ML SUBCUT SCH ×6 (00:30→20:18)
[2020-11-23] MEDS: VANCOMYCIN 50 MG/ML 60 ML/BOTTLE PO SCH ×4 (00:30→18:13)
[2020-11-23] MEDS: methylPREDNISolone SOD SUC 40 MG/1 ML VIAL IV SCH ×3 (00:30→17:19)
[2020-11-23] MEDS: metroNIDAZOLE INJ 500 MG/100 ML PREMIX IV SCH ×3 (02:30→19:28)
[2020-11-23 03:28] LABS: ABG Base Excess -0.3 MMOL/L (-2.5-2.5); ABG HCO3 24.2 MMOL/L (20-26); ABG Oxygen Saturation 97.9 % (95-100); ABG PCO2 37.3 MM HG (35-48); ABG PH 7.417 (7.35-7.45); ABG TCO2 22.4 MMOL/L (23-27)
[2020-11-23 04:33] LABS: Basophils % 0.3 % (0.0-0.8); Hematocrit 24.9 VOL% (35.7-47.0); Hemoglobin 7.8 GM/DL (12.0-16.0); Immature Granulocytes % 6.6 %; Immature Granulocytes Absolute 0.45 #; Lymphocytes # 0.3 10*3/uL (1.4-4.0); Lymphocytes % 4.4 % (21.3-54.2); Mean Corpuscular HGB Conc 31.3 GM/DL (32-36); Mean Corpuscular Volume 92.2 FL (87-102); Mean Platelet Volume 12.4 FL (9.6-12.0); Monocytes % 6.5 % (1.7-12.7); NRBC # 0.03 10*3/uL; Neutrophils % 82.2 % (38.7-73.9); Platelet Count 155 T/CUMM (130-400); Red Cell Distribution Width 16.3 % (9.3-17.3); White Blood Count 6.8 T/CUMM (4-12)
[2020-11-23 04:51] LABS: Albumin 1.7 G/DL (3.4-5.0); Bilirubin,Total 0.8 MG/DL (0.20-1.00); Calcium 8.3 MG/DL (8.5-10.1); Osmolality,Calculated 311.3 MOS/KG (273-304); Potassium 3.3 MMOL/L (3.5-5.1); Total Protein 5.7 G/DL (6.4-8.2)
[2020-11-23 05:00] LABS: Band Neutrophils 3 % (0-10); Hypochromasia 1+; Lymphocytes 4 % (20-55); Microcytosis 1+; Platelet Estimate Adequate; Segmented Neutrophils 89 % (50-85); Total Cells Counted 100
[2020-11-23] MEDS: MICAFUNGIN 100 MG in SODIUM CHLORIDE 0.9% 100 ML IV SCH (05:27)
[2020-11-23] MEDS: LEVOTHYROXINE 100 MCG VIAL IV SCH (06:06)
[2020-11-23] MEDS: POTASSIUM CHLORIDE 20 MEQ TABLET PO PRN (06:06)
[2020-11-23] MEDS: PANTOPRAZOLE 40 MG VIAL IV SCH (08:38)
[2020-11-23] MEDS: VALPROIC ACID 250 MG/5 ML UDCUP PO SCH ×2 (08:39→20:20)
[2020-11-23] MEDS: LACTULOSE 20 GM/30 ML UDCUP PO SCH ×2 (08:42→20:20)
[2020-11-23] MEDS: POTASSIUM BICARB EFFERVESCENT 20 MEQ TAB.EFF PER TUBE PRN ×2 (08:43→11:27)
[2020-11-23] MEDS: ASCORBIC ACID 500 MG TABLET PO SCH ×2 (08:44→20:19)
[2020-11-23] MEDS: CHOLECALCIFEROL 5,000 UNIT TABLET PO SCH ×2 (08:44→20:19)
[2020-11-23] MEDS: gemfibroziL 600 MG TABLET PO SCH ×2 (08:44→20:19)
[2020-11-23] MEDS: CETIRIZINE 10 MG TABLET PO SCH (08:44)
[2020-11-23] MEDS: levETIRAcetam 500 MG TABLET PO SCH ×2 (08:44→20:19)
[2020-11-23] MEDS: LORATADINE 10 MG TABLET PO SCH (08:44)
[2020-11-23] MEDS: SERTRALINE 100 MG TABLET PO SCH (08:44)
[2020-11-23] MEDS: BACILLUS COAGULANS CAPLET PO SCH (08:44)
[2020-11-23] MEDS: INSULIN GLARGINE 100 UNIT/ML SUBCUT SCH (08:47)
[2020-11-23] MEDS: MULTIVITAMIN LIQUID (CENTRUM) 60 ML BOTTLE PO SCH (08:47)
[2020-11-23] MEDS: ZINC GLUCONATE 50 MG TABLET PO SCH (08:48)
[2020-11-23] MEDS ORDERED: INFLUENZA VIRUS VACCINE 0.5 ML SYRINGE IM ONE (09:00)
[2020-11-23 12:56] LABS: West Nile Virus Ab, IgG, CSF Negative (Negative); West Nile Virus Ab, IgM, CSF Negative (Negative)
[2020-11-23] MEDS: VANCOMYCIN INJ 1,500 MG in SODIUM CHLORIDE 0.9% 500 ML IV SCH (18:14)
[2020-11-23] MEDS: MELATONIN 3 MG TABLET PO SCH (20:19)
[2020-11-23] MEDS: GABAPENTIN 300 MG CAPSULE PO SCH (20:19)
[2020-11-23] MEDS: traZODone 50 MG TABLET PO SCH (20:19)
[2020-11-24] MEDS: VANCOMYCIN 50 MG/ML 60 ML/BOTTLE PO SCH ×3 (00:12→12:03)
[2020-11-24] MEDS: methylPREDNISolone SOD SUC 40 MG/1 ML VIAL IV SCH ×3 (01:01→16:25)
[2020-11-24] MEDS: INSULIN LISPRO 100 UNIT/ML SUBCUT SCH ×5 (01:01→16:25)
[2020-11-24] MEDS: metroNIDAZOLE INJ 500 MG/100 ML PREMIX IV SCH ×2 (02:33→12:23)
[2020-11-24] MEDS: NOREPINEPHRINE 16 MG in SODIUM CHLORIDE 0.9% 234 ML IV PRN (03:00)
[2020-11-24 03:34] LABS: ABG Base Excess -2.7 MMOL/L (-2.5-2.5); ABG HCO3 22.1 MMOL/L (20-26); ABG Oxygen Saturation 98.3 % (95-100); ABG PCO2 36.9 MM HG (35-48); ABG PH 7.382 (7.35-7.45); ABG TCO2 20.4 MMOL/L (23-27)
[2020-11-24 04:26] LABS: Basophils % 0.4 % (0.0-0.8); Hematocrit 26.8 VOL% (35.7-47.0); Hemoglobin 8.3 GM/DL (12.0-16.0); Immature Granulocytes Absolute 0.51 #; Lymphocytes # 0.7 10*3/uL (1.4-4.0); Lymphocytes % 8.1 % (21.3-54.2); Mean Corpuscular Volume 92.7 FL (87-102); Mean Platelet Volume 11.6 FL (9.6-12.0); Monocytes % 9.6 % (1.7-12.7); NRBC # 0.03 10*3/uL; Neutrophils % 75.9 % (38.7-73.9); Platelet Count 232 T/CUMM (130-400); Red Blood Count 2.89 MC/CUMM (3.8-5.5); Red Cell Distribution Width 16.5 % (9.3-17.3); White Blood Count 8.5 T/CUMM (4-12)
[2020-11-24 04:45] LABS: Band Neutrophils 1 % (0-10); Lymphocytes 10 % (20-55); Myelocytes 1 %; Segmented Neutrophils 82 % (50-85); Total Cells Counted 100
[2020-11-24 04:46] LABS: Hypochromasia 1+; Microcytosis 1+; Platelet Estimate Adequate
[2020-11-24 04:48] LABS: Albumin 1.7 G/DL (3.4-5.0); Bilirubin,Total 0.5 MG/DL (0.20-1.00); Osmolality,Calculated 308.3 MOS/KG (273-304); Potassium 3.8 MMOL/L (3.5-5.1); Total Protein 5.9 G/DL (6.4-8.2)
[2020-11-24] MEDS: MICAFUNGIN 100 MG in SODIUM CHLORIDE 0.9% 100 ML IV SCH (04:54)
[2020-11-24] MEDS: LEVOTHYROXINE 100 MCG VIAL IV SCH (06:34)
[2020-11-24] MEDS: CETIRIZINE 10 MG TABLET PO SCH (08:11)
[2020-11-24] MEDS: PANTOPRAZOLE 40 MG VIAL IV SCH (08:11)
[2020-11-24] MEDS: VALPROIC ACID 250 MG/5 ML UDCUP PO SCH (08:11)
[2020-11-24] MEDS: LACTULOSE 20 GM/30 ML UDCUP PO SCH (08:11)
[2020-11-24] MEDS: gemfibroziL 600 MG TABLET PO SCH (08:11)
[2020-11-24] MEDS: SERTRALINE 100 MG TABLET PO SCH (08:11)
[2020-11-24] MEDS: ZINC GLUCONATE 50 MG TABLET PO SCH (08:12)
[2020-11-24] MEDS: CHOLECALCIFEROL 5,000 UNIT TABLET PO SCH (08:12)
[2020-11-24] MEDS: ASCORBIC ACID 500 MG TABLET PO SCH (08:12)
[2020-11-24] MEDS: BACILLUS COAGULANS CAPLET PO SCH (08:12)
[2020-11-24] MEDS: POTASSIUM CHLORIDE 20 MEQ TABLET PO SCH ×2 (08:12→09:43)
[2020-11-24] MEDS: levETIRAcetam 500 MG TABLET PO SCH (08:12)
[2020-11-24] MEDS: LORATADINE 10 MG TABLET PO SCH (08:13)
[2020-11-24] MEDS ORDERED: INSULIN GLARGINE 100 UNIT/ML SUBCUT SCH (09:00)
[2020-11-24 09:26] LABS: M. Tuberculosis PCR Result Negative (Negative); M. Tuberculosis PCR Source CSF
[2020-11-24] MEDS: MULTIVITAMIN LIQUID (CENTRUM) 60 ML BOTTLE PO SCH (09:44)
[2020-11-24] MEDS ORDERED: LACTATED RINGERS 1,000 ML IV ONE (11:15)
[2020-11-24] MEDS: VANCOMYCIN INJ 1,500 MG in SODIUM CHLORIDE 0.9% 500 ML IV SCH (16:24)
== END 2020-11-24 17:25 | DRG 689 ==
LOC: N.OR 10:03 → N.SDSINP 10:05 → SUATTDRO 15:24 → N.4E 16:19 → N.CC 11-09 16:35 → N.2E 11-14 13:43 → N.CC 11-18 18:04
PROVIDERS: ADMIT Surgery; ATTEND Internal Medicine

== ENCOUNTER 2021-02-04 09:43 | Inpatient (IN) ==
[2021-02-04] MEDS ORDERED: ALBUTEROL 2.5 MG/3 ML NEB RESP TX STA (10:04)
[2021-02-04] MEDS ORDERED: SODIUM CHLORIDE 0.9% 1,000 ML IV STA (10:04)
[2021-02-04 10:10] LABS: Basophils # 0.1 10*3/uL (0.0-0.2); Basophils % 0.3 % (0.0-0.8); Eosinophils % 0.1 % (0.00-10.9); Hematocrit 33.8 VOL% (35.7-47.0); Hemoglobin 10.3 GM/DL (12.0-16.0); Immature Granulocytes % 1.3 %; Lymphocytes # 2.9 10*3/uL (1.4-4.0); Lymphocytes % 12.7 % (21.3-54.2); Mean Corpuscular HGB Conc 30.5 GM/DL (32-36); Mean Corpuscular Volume 98.5 FL (87-102); Mean Platelet Volume 9.7 FL (9.6-12.0); Monocytes % 10.2 % (1.7-12.7); NRBC # 0.03 10*3/uL; Neutrophils % 75.4 % (38.7-73.9); Platelet Count 438 T/CUMM (130-400); Red Blood Count 3.43 MC/CUMM (3.8-5.5); Red Cell Distribution Width 16.7 % (9.3-17.3)
[2021-02-04] MEDS ORDERED: SODIUM CHLORIDE 0.9% 3,600 ML IV ONE (10:10)
[2021-02-04] MEDS ORDERED: MEROPENEM 1,000 MG in SODIUM CHLORIDE 0.9% 100 ML IV ONE (10:25)
[2021-02-04 10:31] LABS: Band Neutrophils 3 % (0-10); Hypochromasia Slight; Lymphocytes 14 % (20-55); Microcytosis Slight; Platelet Estimate Adequate; Segmented Neutrophils 76 % (50-85); Total Cells Counted 100
[2021-02-04 10:31] LABS: Bilirubin,Urine Negative (Negative); Blood, Urine Large mg/dL (Negative); Glucose,Urine (UA) Negative (Negative); Ketones,Urine Negative (Negative); Nitrite,Urine Negative (Negative); Protein,Urine >=500 MG/DL; Urine Appearance CLOUDY (Clear); Urine Color Amber (Yellow); Urine Specific Gravity 1.019 (1.001-1.035); Urine Urobilinogen < 2.0 EU/DL (<2.0)
[2021-02-04 10:32] LABS: Alanine Aminotransferase 14 U/L (13-56); Albumin 2.5 G/DL (3.4-5.0); Alkaline Phosphatase 268 U/L (45-117); Aspartate Amino Transferase 34 U/L (0-37); Blood Urea Nitrogen 43 MG/DL (7-18); Calcium 11.2 MG/DL (8.5-10.1); Carbon Dioxide 19 MMOL/L (21-32); Estimated Glom Filtration Rate 33 ML/MIN; Glucose 174 MG/DL (74-106); Osmolality,Calculated 276.7 MOS/KG (273-304); Sodium 131 MMOL/L (136-145); Total Protein 9.7 G/DL (6.4-8.2)
[2021-02-04 10:36] LABS: Bacteria,Urine Many /HPF (Few); Mucus,Urine Occasional /LPF (Occasional); RBC,Urine 227 /HPF (0-4)
[2021-02-04 10:37] LABS: Potassium 6.1 MMOL/L (3.5-5.1)
[2021-02-04] MEDS ORDERED: DEXTROSE 50% 25 GM/50 ML VIAL IV STA (10:42)
[2021-02-04] MEDS ORDERED: INSULIN REGULAR 100 UNIT/ML IV ONE (10:42)
[2021-02-04] MEDS ORDERED: DEXTROSE 50% 25 GM/50 ML SYRINGE IV ONE (10:51)
[2021-02-04 11:12] LABS: ABG Base Excess -8.8 MMOL/L (-2.5-2.5); ABG HCO3 17.3 MMOL/L (20-26); ABG Oxygen Saturation 97.7 % (95-100); ABG PCO2 25.6 MM HG (35-48); ABG PH 7.381 (7.35-7.45); ABG TCO2 14.1 MMOL/L (23-27)
[2021-02-04] MEDS ORDERED: VANCOMYCIN INJ 1,250 MG in SODIUM CHLORIDE 0.9% 250 ML IV STA (11:14)
[2021-02-04] MEDS ORDERED: ALBUTEROL 2.5 MG/3 ML NEB RESP TX PRN (12:55)
[2021-02-04] MEDS ORDERED: ONDANSETRON 4 MG/2 ML VIAL IV PRN (12:56)
[2021-02-04] MEDS ORDERED: ACETAMINOPHEN 325 MG TABLET PO PRN (15:18)
[2021-02-04] MEDS: SODIUM CHLORIDE 0.9% 1,000 ML IV SCH (15:50)
[2021-02-04] MEDS: FAMOTIDINE 20 MG/2 ML VIAL IV SCH (15:50)
[2021-02-04] MEDS: methylPREDNISolone SOD SUC 40 MG/1 ML VIAL IV SCH ×2 (15:50→23:29)
[2021-02-04] MEDS ORDERED: SODIUM BICARBONATE 50 MEQ/50 ML VIAL IV ONE (17:18)
[2021-02-04] MEDS ORDERED: SODIUM POLYSTYRENE SULFATE 15 GM/60 ML BOTTLE PO ONE (17:19)
[2021-02-04] MEDS: PIPERACILLIN/TAZOBACTAM 3,375 MG in SODIUM CHLORIDE 0.9% 100 ML IV SCH ×2 (17:24→23:29)
[2021-02-04] MEDS: ALBUMIN 25% 12.5 GM/50 ML VIAL IV SCH (17:35)
[2021-02-04] MEDS: NOREPINEPHRINE 8 MG in SODIUM CHLORIDE 0.9% 242 ML IV PRN (17:45)
[2021-02-05] MEDS: SODIUM CHLORIDE 0.9% 1,000 ML IV SCH ×6 (00:37→23:38)
[2021-02-05] MEDS: FAMOTIDINE 20 MG/2 ML VIAL IV SCH ×2 (01:08→14:51)
[2021-02-05] MEDS: ALBUMIN 25% 12.5 GM/50 ML VIAL IV SCH ×2 (01:09→09:21)
[2021-02-05] MEDS: NOREPINEPHRINE 8 MG in SODIUM CHLORIDE 0.9% 242 ML IV PRN (02:18)
[2021-02-05] MEDS: methylPREDNISolone SOD SUC 40 MG/1 ML VIAL IV SCH ×3 (05:59→21:03)
[2021-02-05] MEDS: PIPERACILLIN/TAZOBACTAM 3,375 MG in SODIUM CHLORIDE 0.9% 100 ML IV SCH ×3 (05:59→21:30)
[2021-02-05 06:36] LABS: Albumin 2.1 G/DL (3.4-5.0); Bilirubin,Total 0.4 MG/DL (0.20-1.00); Calcium 8.2 MG/DL (8.5-10.1); Osmolality,Calculated 307.1 MOS/KG (273-304); Potassium 3.2 MMOL/L (3.5-5.1); Total Protein 7.1 G/DL (6.4-8.2)
[2021-02-05 06:37] LABS: Basophils % 0.2 % (0.0-0.8); Hematocrit 23.7 VOL% (35.7-47.0); Immature Granulocytes % 0.7 %; Immature Granulocytes Absolute 0.09 #; Lymphocytes # 0.8 10*3/uL (1.4-4.0); Lymphocytes % 6.6 % (21.3-54.2); Mean Corpuscular HGB Conc 31.2 GM/DL (32-36); Mean Corpuscular Volume 97.1 FL (87-102); Mean Platelet Volume 9.5 FL (9.6-12.0); Monocytes % 4.3 % (1.7-12.7); Neutrophils % 88.2 % (38.7-73.9)
[2021-02-05 06:38] LABS: White Blood Count 12.7 T/CUMM (4-12)
[2021-02-05 06:40] LABS: Hemoglobin 7.4 GM/DL (12.0-16.0); Platelet Count 298 T/CUMM (130-400); Red Blood Count 2.44 MC/CUMM (3.8-5.5)
[2021-02-05 06:57] LABS: Anisocytosis 1+; Band Neutrophils 10 % (0-10); Hypochromasia 1+; Lymphocytes 7 % (20-55); Metamyelocytes 2 %; Microcytosis 1+; Segmented Neutrophils 78 % (50-85); Total Cells Counted 100
[2021-02-05 06:58] LABS: Platelet Estimate Normal; Polychromasia Slight
[2021-02-05 09:24] LABS: ABG Base Excess -4.5 MMOL/L (-2.5-2.5); ABG HCO3 20.7 MMOL/L (20-26); ABG Oxygen Saturation 97.2 % (95-100); ABG PCO2 27.8 MM HG (35-48); ABG PH 7.438 (7.35-7.45); ABG TCO2 17.3 MMOL/L (23-27); Allen Test Positive; Pt O2 Delivery Device Other
[2021-02-05] MEDS ORDERED: DILTIAZEM 30 MG TABLET PO PRN (10:04)
[2021-02-05] MEDS ORDERED: FLUCONAZOLE 200 MG TABLET PEG SCH (10:30)
[2021-02-05] MEDS: LEVOTHYROXINE 75 MCG TABLET PEG SCH (11:27)
[2021-02-05] MEDS: LORATADINE 10 MG TABLET PEG SCH (11:27)
[2021-02-05] MEDS: levETIRAcetam 500 MG TABLET PO SCH ×2 (11:27→21:02)
[2021-02-05] MEDS: INSULIN GLARGINE 100 UNIT/ML SUBCUT SCH ×2 (11:28→21:02)
[2021-02-05] MEDS: POTASSIUM BICARB EFFERVESCENT 20 MEQ TAB.EFF PEG SCH (11:28)
[2021-02-05] MEDS: gemfibroziL 600 MG TABLET PEG SCH ×2 (11:28→21:02)
[2021-02-05] MEDS: GABAPENTIN 300 MG CAPSULE PEG SCH (11:28)
[2021-02-05] MEDS: VALPROIC ACID 250 MG/5 ML UDCUP PEG SCH ×2 (11:28→21:02)
[2021-02-05] MEDS ORDERED: GLUCAGON 1 MG VIAL IM PRN (17:01)
[2021-02-05] MEDS ORDERED: DEXTROSE 50% 25 GM/50 ML SYRINGE IV PRN (17:01)
[2021-02-05] MEDS: INSULIN LISPRO 100 UNIT/ML SUBCUT SCH ×2 (18:08→23:39)
[2021-02-05] MEDS: SERTRALINE 100 MG TABLET PEG SCH (21:03)
[2021-02-06] MEDS: FAMOTIDINE 20 MG/2 ML VIAL IV SCH ×2 (00:09→12:58)
[2021-02-06 04:15] LABS: ABG Base Excess -4.7 MMOL/L (-2.5-2.5); ABG HCO3 18.6 MMOL/L (20-26); ABG PCO2 27.3 MM HG (35-48); ABG PH 7.452 (7.35-7.45); ABG TCO2 19.5 MMOL/L (23-27)
[2021-02-06 05:00] LABS: Basophils % 0.1 % (0.0-0.8); Hematocrit 25.3 VOL% (35.7-47.0); Hemoglobin 7.5 GM/DL (12.0-16.0); Immature Granulocytes % 0.9 %; Lymphocytes # 1.2 10*3/uL (1.4-4.0); Lymphocytes % 11.3 % (21.3-54.2); Mean Corpuscular HGB Conc 29.6 GM/DL (32-36); Mean Corpuscular Volume 101.2 FL (87-102); Mean Platelet Volume 9.7 FL (9.6-12.0); Monocytes % 3.1 % (1.7-12.7); Neutrophils % 84.6 % (38.7-73.9); Platelet Count 330 T/CUMM (130-400); Red Cell Distribution Width 15.9 % (9.3-17.3)
[2021-02-06 05:17] LABS: Calcium 8.3 MG/DL (8.5-10.1); Potassium 3.6 MMOL/L (3.5-5.1)
[2021-02-06 05:30] LABS: Band Neutrophils 1 % (0-10); Hypochromasia 1+; Lymphocytes 8 % (20-55); Microcytosis 1+; Platelet Estimate Adequate; Segmented Neutrophils 88 % (50-85); Total Cells Counted 100
[2021-02-06] MEDS: INSULIN LISPRO 100 UNIT/ML SUBCUT SCH ×3 (06:23→18:16)
[2021-02-06] MEDS: methylPREDNISolone SOD SUC 40 MG/1 ML VIAL IV SCH ×3 (06:23→21:25)
[2021-02-06] MEDS: PIPERACILLIN/TAZOBACTAM 3,375 MG in SODIUM CHLORIDE 0.9% 100 ML IV SCH ×3 (06:24→21:25)
[2021-02-06] MEDS: LEVOTHYROXINE 75 MCG TABLET PEG SCH (06:29)
[2021-02-06] MEDS: SODIUM CHLORIDE 0.9% 1,000 ML IV SCH (07:59)
[2021-02-06] MEDS: VALPROIC ACID 250 MG/5 ML UDCUP PEG SCH ×2 (09:03→21:22)
[2021-02-06] MEDS: LORATADINE 10 MG TABLET PEG SCH (09:04)
[2021-02-06] MEDS: BACILLUS COAGULANS CAPLET PO SCH (09:04)
[2021-02-06] MEDS: GABAPENTIN 300 MG CAPSULE PEG SCH (09:04)
[2021-02-06] MEDS: gemfibroziL 600 MG TABLET PEG SCH ×2 (09:04→21:22)
[2021-02-06] MEDS: POTASSIUM BICARB EFFERVESCENT 20 MEQ TAB.EFF PEG SCH (09:04)
[2021-02-06] MEDS: levETIRAcetam 500 MG TABLET PO SCH ×2 (09:04→21:23)
[2021-02-06] MEDS: ENOXAPARIN 40 MG/0.4 ML SYRINGE SUBCUT SCH (09:05)
[2021-02-06] MEDS: INSULIN GLARGINE 100 UNIT/ML SUBCUT SCH ×2 (09:35→21:24)
[2021-02-06] MEDS: SERTRALINE 100 MG TABLET PEG SCH (21:23)
[2021-02-07] MEDS: INSULIN LISPRO 100 UNIT/ML SUBCUT SCH ×4 (00:58→17:36)
[2021-02-07] MEDS: FAMOTIDINE 20 MG/2 ML VIAL IV SCH ×2 (00:58→12:00)
[2021-02-07] MEDS: PIPERACILLIN/TAZOBACTAM 3,375 MG in SODIUM CHLORIDE 0.9% 100 ML IV SCH ×3 (06:27→21:45)
[2021-02-07] MEDS: LEVOTHYROXINE 75 MCG TABLET PEG SCH (06:28)
[2021-02-07] MEDS: methylPREDNISolone SOD SUC 40 MG/1 ML VIAL IV SCH ×3 (06:28→21:16)
[2021-02-07 06:46] LABS: Basophils % 0.1 % (0.0-0.8); Hematocrit 23.5 VOL% (35.7-47.0); Immature Granulocytes % 1.4 %; Lymphocytes # 1.1 10*3/uL (1.4-4.0); Lymphocytes % 15.4 % (21.3-54.2); Mean Corpuscular HGB Conc 29.8 GM/DL (32-36); Mean Corpuscular Volume 100.9 FL (87-102); Mean Platelet Volume 10.2 FL (9.6-12.0); NRBC # 0.02 10*3/uL; Neutrophils % 78.1 % (38.7-73.9); Platelet Count 295 T/CUMM (130-400); Red Blood Count 2.33 MC/CUMM (3.8-5.5); Red Cell Distribution Width 15.6 % (9.3-17.3); White Blood Count 7.2 T/CUMM (4-12)
[2021-02-07 07:02] LABS: Calcium 8.6 MG/DL (8.5-10.1); Osmolality,Calculated 304.3 MOS/KG (273-304)
[2021-02-07] MEDS: VALPROIC ACID 250 MG/5 ML UDCUP PEG SCH ×2 (08:40→21:07)
[2021-02-07] MEDS: levETIRAcetam 500 MG TABLET PO SCH ×2 (08:41→21:07)
[2021-02-07] MEDS: GABAPENTIN 300 MG CAPSULE PEG SCH (08:41)
[2021-02-07] MEDS: ENOXAPARIN 40 MG/0.4 ML SYRINGE SUBCUT SCH (08:41)
[2021-02-07] MEDS: BACILLUS COAGULANS CAPLET PO SCH (08:41)
[2021-02-07] MEDS: gemfibroziL 600 MG TABLET PEG SCH ×2 (08:41→21:07)
[2021-02-07] MEDS: LORATADINE 10 MG TABLET PEG SCH (08:41)
[2021-02-07] MEDS: INSULIN GLARGINE 100 UNIT/ML SUBCUT SCH ×2 (08:41→21:24)
[2021-02-07] MEDS: POTASSIUM BICARB EFFERVESCENT 20 MEQ TAB.EFF PEG SCH (08:41)
[2021-02-07] MEDS: SERTRALINE 100 MG TABLET PEG SCH (21:07)
[2021-02-07] MEDS: DESITIN 4OZ/NYSTATIN 15 GRAM MIXTURE PASTE TOP SCH (21:47)
[2021-02-08] MEDS: INSULIN LISPRO 100 UNIT/ML SUBCUT SCH ×3 (01:00→13:22)
[2021-02-08] MEDS: FAMOTIDINE 20 MG/2 ML VIAL IV SCH ×2 (01:00→12:29)
[2021-02-08 05:52] LABS: Basophils % 0.1 % (0.0-0.8); Hematocrit 26.5 VOL% (35.7-47.0); Hemoglobin 8.1 GM/DL (12.0-16.0); Immature Granulocytes % 4.7 %; Immature Granulocytes Absolute 0.41 #; Lymphocytes # 1.4 10*3/uL (1.4-4.0); Lymphocytes % 16.4 % (21.3-54.2); Mean Corpuscular HGB Conc 30.6 GM/DL (32-36); Mean Corpuscular Volume 96.4 FL (87-102); Monocytes % 5.7 % (1.7-12.7); NRBC # 0.05 10*3/uL; Neutrophils % 73.1 % (38.7-73.9); Platelet Count 352 T/CUMM (130-400); Red Blood Count 2.75 MC/CUMM (3.8-5.5); Red Cell Distribution Width 14.8 % (9.3-17.3); White Blood Count 8.7 T/CUMM (4-12)
[2021-02-08 06:13] LABS: Calcium 8.9 MG/DL (8.5-10.1); Osmolality,Calculated 291.8 MOS/KG (273-304); Potassium 4.1 MMOL/L (3.5-5.1)
[2021-02-08 06:54] LABS: Band Neutrophils 1 % (0-10); Hypochromasia 1+; Lymphocytes 17 % (20-55); Microcytosis 1+; Myelocytes 2 %; Nucleated Red Blood Cells 1 (0-5); Segmented Neutrophils 74 % (50-85); Total Cells Counted 100
[2021-02-08] MEDS: methylPREDNISolone SOD SUC 40 MG/1 ML VIAL IV SCH ×2 (07:05→14:59)
[2021-02-08] MEDS: PIPERACILLIN/TAZOBACTAM 3,375 MG in SODIUM CHLORIDE 0.9% 100 ML IV SCH ×2 (07:20→13:41)
[2021-02-08] MEDS: LEVOTHYROXINE 75 MCG TABLET PEG SCH (07:55)
[2021-02-08] MEDS: POTASSIUM BICARB EFFERVESCENT 20 MEQ TAB.EFF PEG SCH (09:31)
[2021-02-08] MEDS: LORATADINE 10 MG TABLET PEG SCH (09:31)
[2021-02-08] MEDS: VALPROIC ACID 250 MG/5 ML UDCUP PEG SCH (09:31)
[2021-02-08] MEDS: gemfibroziL 600 MG TABLET PEG SCH (09:32)
[2021-02-08] MEDS: GABAPENTIN 300 MG CAPSULE PEG SCH (09:32)
[2021-02-08] MEDS: levETIRAcetam 500 MG TABLET PO SCH (09:32)
[2021-02-08] MEDS: ENOXAPARIN 40 MG/0.4 ML SYRINGE SUBCUT SCH (09:33)
[2021-02-08] MEDS: INSULIN GLARGINE 100 UNIT/ML SUBCUT SCH (09:33)
[2021-02-08] MEDS: BACILLUS COAGULANS CAPLET PO SCH (09:33)
[2021-02-08] MEDS: DESITIN 4OZ/NYSTATIN 15 GRAM MIXTURE PASTE TOP SCH (09:34)
[2021-02-08 12:13] VITALS: BP 124/67
== END 2021-02-08 16:01 | DRG 871 ==
LOC: EDUNIT# → EDBD → N.ED 09:43 → N.EDINP 12:55 → SUATTDRO 12:55 → N.ICU 14:10 → N.TELEN 02-07 22:41
PROVIDERS: ADMIT Internal Medicine; ATTEND Internal Medicine

== ENCOUNTER 2021-03-21 15:27 | Inpatient (IN) ==
[2021-03-21] MEDS ORDERED: SODIUM CHLORIDE 0.9% 500 ML IV STA ×2 (16:23→18:52)
[2021-03-21] MEDS ORDERED: cefTRIAXone 1,000 MG in SODIUM CHLORIDE 0.9% 100 ML IV STA (16:23)
[2021-03-21 17:18] LABS: Basophils # 0.1 10*3/uL (0.0-0.2); Basophils % 0.4 % (0.0-0.8); Eosinophils # 0.4 10*3/uL (0.0-0.87); Eosinophils % 3.2 % (0.00-10.9); Hematocrit 36.3 VOL% (35.7-47.0); Hemoglobin 11.1 GM/DL (12.0-16.0); Immature Granulocytes % 0.5 %; Immature Granulocytes Absolute 0.06 #; Lymphocytes # 1.9 10*3/uL (1.4-4.0); Lymphocytes % 17.1 % (21.3-54.2); Mean Corpuscular HGB Conc 30.6 GM/DL (32-36); Mean Corpuscular Volume 92.4 FL (87-102); Mean Platelet Volume 9.5 FL (9.6-12.0); Monocytes % 11.9 % (1.7-12.7); Neutrophils % 66.9 % (38.7-73.9); Platelet Count 331 T/CUMM (130-400); Red Blood Count 3.93 MC/CUMM (3.8-5.5); Red Cell Distribution Width 15.8 % (9.3-17.3); White Blood Count 11.3 T/CUMM (4-12)
[2021-03-21 17:44] LABS: Alanine Aminotransferase 11 U/L (13-56); Albumin 2.4 G/DL (3.4-5.0); Alkaline Phosphatase 340 U/L (45-117); Aspartate Amino Transferase 36 U/L (0-37); Blood Urea Nitrogen 17 MG/DL (7-18); Calcium 10.1 MG/DL (8.5-10.1); Carbon Dioxide 28 MMOL/L (21-32); Estimated Glom Filtration Rate 60 ML/MIN; Glucose 99 MG/DL (74-106); Osmolality,Calculated 269.2 MOS/KG (273-304); Potassium 3.9 MMOL/L (3.5-5.1); Sodium 134 MMOL/L (136-145); Total Protein 9.4 G/DL (6.4-8.2)
[2021-03-21 18:02] LABS: Bacteria,Urine Occasional /HPF (Few); Bilirubin,Urine Negative (Negative); Blood, Urine Small mg/dL (Negative); Glucose,Urine (UA) 50 mg/dL (Negative); Ketones,Urine Negative (Negative); Mucus,Urine Occasional /LPF (Occasional); Nitrite,Urine Negative (Negative); Protein,Urine 100 MG/DL; RBC,Urine 10 /HPF (0-4); Urine Appearance CLOUDY (Clear); Urine Color Yellow (Yellow); Urine Urobilinogen < 2.0 EU/DL (<2.0)
[2021-03-21] MEDS ORDERED: PIPERACILLIN/TAZOBACTAM 3,375 MG in SODIUM CHLORIDE 0.9% 100 ML IV STA (18:10)
[2021-03-21] MEDS ORDERED: ONDANSETRON 4 MG/2 ML VIAL IV PRN (20:04)
[2021-03-21] MEDS ORDERED: GLUCAGON 1 MG VIAL IM PRN ×2 (20:04→20:14)
[2021-03-21] MEDS ORDERED: DEXTROSE 10% 25 GM/250 ML BAG IV PRN (20:09)
[2021-03-21] MEDS ORDERED: DEXTROSE 50% 25 GM/50 ML VIAL IV PRN (20:14)
[2021-03-21 20:59] LABS: Thyroid Stimulating Hormone 5.92 uIU/ml (0.358-3.74)
[2021-03-21] MEDS ORDERED: levETIRAcetam LIQUID 100 MG/ML 30 ML/BOTTLE PEG SCH (21:00)
[2021-03-21] MEDS ORDERED: DILTIAZEM 30 MG TABLET PO PRN (22:10)
[2021-03-21] MEDS: SERTRALINE 100 MG TABLET PEG SCH (23:37)
[2021-03-21] MEDS: VALPROIC ACID 250 MG/5 ML UDCUP PEG SCH (23:40)
[2021-03-21] MEDS: levETIRAcetam LIQUID 100 MG/ML 30 ML/BOTTLE PEG SCH (23:44)
[2021-03-21] MEDS: gemfibroziL 600 MG TABLET PEG SCH (23:50)
[2021-03-21] MEDS: GABAPENTIN 300 MG CAPSULE PEG SCH (23:50)
[2021-03-22] MEDS: ENOXAPARIN 40 MG/0.4 ML SYRINGE SUBCUT SCH ×2 (00:09→21:51)
[2021-03-22] MEDS: SODIUM CHLORIDE 0.9% 1,000 ML IV SCH ×3 (00:09→17:47)
[2021-03-22 04:16] LABS: Basophils % 0.2 % (0.0-0.8); Eosinophils # 0.1 10*3/uL (0.0-0.87); Eosinophils % 0.4 % (0.00-10.9); Hematocrit 36.5 VOL% (35.7-47.0); Hemoglobin 10.9 GM/DL (12.0-16.0); Immature Granulocytes % 0.8 %; Immature Granulocytes Absolute 0.13 #; Lymphocytes # 0.6 10*3/uL (1.4-4.0); Lymphocytes % 3.5 % (21.3-54.2); Mean Corpuscular HGB Conc 29.9 GM/DL (32-36); Mean Corpuscular Volume 95.1 FL (87-102); Mean Platelet Volume 9.7 FL (9.6-12.0); Monocytes % 14.2 % (1.7-12.7); Neutrophils % 80.9 % (38.7-73.9); Platelet Count 312 T/CUMM (130-400); Red Blood Count 3.84 MC/CUMM (3.8-5.5); Red Cell Distribution Width 16.2 % (9.3-17.3); White Blood Count 16.9 T/CUMM (4-12)
[2021-03-22 04:35] LABS: Eosinophils 3 % (0-10); Hypochromia 1+; Lymphocytes 6 % (20-55); Microcytosis 1+; Platelet Estimate Adequate; Segmented Neutrophils 72 % (50-85); Total Cells Counted 100
[2021-03-22 04:41] LABS: Alanine Aminotransferase 12 U/L (13-56); Alkaline Phosphatase 254 U/L (45-117); Aspartate Amino Transferase 36 U/L (0-37); Bilirubin,Total < 0.39 MG/DL (0.20-1.00); Blood Urea Nitrogen 21 MG/DL (7-18); Calcium 9.7 MG/DL (8.5-10.1); Carbon Dioxide 21 MMOL/L (21-32); Estimated Glom Filtration Rate 37 ML/MIN; Glucose 123 MG/DL (74-106); HDL Cholesterol 24 MG/DL (40-60); Potassium 4.4 MMOL/L (3.5-5.1); Risk Ratio 7.58; Sodium 136 MMOL/L (136-145); Total Protein 8.2 G/DL (6.4-8.2); Triglycerides 284 MG/DL (2-150); VLDL Cholesterol 56.8 MG/DL
[2021-03-22] MEDS: PIPERACILLIN/TAZOBACTAM 3,375 MG in SODIUM CHLORIDE 0.9% 100 ML IV SCH (04:45)
[2021-03-22 04:46] LABS: ABG HCO3 21.8 MMOL/L (20-26); ABG PCO2 28.3 MM HG (35-48); ABG PH 7.456 (7.35-7.45); ABG TCO2 18.1 MMOL/L (23-27)
[2021-03-22] MEDS: NOREPINEPHRINE 8 MG in SODIUM CHLORIDE 0.9% 242 ML IV PRN ×2 (05:17→17:48)
[2021-03-22] MEDS: LEVOTHYROXINE 150 MCG TABLET PEG SCH (06:35)
[2021-03-22] MEDS ORDERED: VANCOMYCIN INJ 1,250 MG in SODIUM CHLORIDE 0.9% 250 ML IV ONE (08:00)
[2021-03-22] MEDS ORDERED: PANTOPRAZOLE 40 MG TABLET PO SCH (09:00)
[2021-03-22] MEDS: ACETAMINOPHEN 325 MG TABLET PO PRN (09:51)
[2021-03-22] MEDS: levETIRAcetam LIQUID 100 MG/ML 30 ML/BOTTLE PEG SCH ×2 (10:15→21:55)
[2021-03-22] MEDS: gemfibroziL 600 MG TABLET PEG SCH ×2 (10:17→21:50)
[2021-03-22] MEDS: LORATADINE 10 MG TABLET PEG SCH (10:18)
[2021-03-22] MEDS: VALPROIC ACID 250 MG/5 ML UDCUP PEG SCH ×2 (10:21→21:51)
[2021-03-22] MEDS: PANTOPRAZOLE 40 MG VIAL IV SCH (10:27)
[2021-03-22] MEDS ORDERED: GENTAMICIN INJ 160 MG in SODIUM CHLORIDE 0.9% 100 ML IV ONE ×2 (10:30→12:00)
[2021-03-22] MEDS: NON-FORMULARY MEDICATION (Bacillus Coagulan-Calcium Carb [Digestive Advantage Probiotic] 2 PO SCH (10:38)
[2021-03-22] MEDS ORDERED: GENTAMICIN 80 MG/2 ML VIAL ONE ×2 (11:36→11:37)
[2021-03-22] MEDS: SERTRALINE 100 MG TABLET PEG SCH (21:50)
[2021-03-22] MEDS: GABAPENTIN 300 MG CAPSULE PEG SCH (21:51)
[2021-03-23] MEDS: SODIUM CHLORIDE 0.9% 1,000 ML IV SCH ×2 (01:50→09:40)
[2021-03-23 02:31] LABS: Basophils # 0.1 10*3/uL (0.0-0.2); Basophils % 0.6 % (0.0-0.8); Eosinophils # 0.6 10*3/uL (0.0-0.87); Eosinophils % 4.4 % (0.00-10.9); Hematocrit 30.2 VOL% (35.7-47.0); Hemoglobin 9.3 GM/DL (12.0-16.0); Immature Granulocytes % 0.4 %; Immature Granulocytes Absolute 0.05 #; Lymphocytes # 2.1 10*3/uL (1.4-4.0); Lymphocytes % 15.7 % (21.3-54.2); Mean Corpuscular HGB Conc 30.8 GM/DL (32-36); Mean Corpuscular Volume 92.9 FL (87-102); Mean Platelet Volume 9.4 FL (9.6-12.0); Monocytes % 14.1 % (1.7-12.7); Neutrophils % 64.8 % (38.7-73.9); Platelet Count 333 T/CUMM (130-400); Red Blood Count 3.25 MC/CUMM (3.8-5.5); Red Cell Distribution Width 16.2 % (9.3-17.3); White Blood Count 13.6 T/CUMM (4-12)
[2021-03-23 02:52] LABS: Calcium 8.8 MG/DL (8.5-10.1); Osmolality,Calculated 295.4 MOS/KG (273-304); Potassium 3.5 MMOL/L (3.5-5.1)
[2021-03-23 04:24] LABS: ABG Base Excess -3.4 MMOL/L (-2.5-2.5); ABG HCO3 21.6 MMOL/L (20-26); ABG Oxygen Saturation 99.1 % (95-100); ABG PCO2 32.9 MM HG (35-48); ABG PH 7.405 (7.35-7.45); ABG TCO2 18.8 MMOL/L (23-27)
[2021-03-23] MEDS: LEVOTHYROXINE 150 MCG TABLET PEG SCH (05:31)
[2021-03-23] MEDS: PIPERACILLIN/TAZOBACTAM 3,375 MG in SODIUM CHLORIDE 0.9% 100 ML IV SCH (07:36)
[2021-03-23] MEDS: levETIRAcetam LIQUID 100 MG/ML 30 ML/BOTTLE PEG SCH ×2 (08:02→21:54)
[2021-03-23] MEDS: gemfibroziL 600 MG TABLET PEG SCH ×2 (08:02→21:53)
[2021-03-23] MEDS: LORATADINE 10 MG TABLET PEG SCH (08:02)
[2021-03-23] MEDS: VALPROIC ACID 250 MG/5 ML UDCUP PEG SCH ×2 (08:02→21:53)
[2021-03-23] MEDS: PANTOPRAZOLE 40 MG VIAL IV SCH (08:16)
[2021-03-23] MEDS: NON-FORMULARY MEDICATION (Bacillus Coagulan-Calcium Carb [Digestive Advantage Probiotic] 2 PO SCH (08:19)
[2021-03-23] MEDS: GENTAMICIN INJ 80 MG/50 ML PREMIX IV SCH (11:57)
[2021-03-23] MEDS: NOREPINEPHRINE 8 MG in SODIUM CHLORIDE 0.9% 242 ML IV PRN (13:13)
[2021-03-23] MEDS: SODIUM CHLORIDE 0.45% 1,000 ML IV SCH ×2 (13:18→21:55)
[2021-03-23] MEDS: GABAPENTIN 300 MG CAPSULE PEG SCH (21:53)
[2021-03-23] MEDS: ENOXAPARIN 40 MG/0.4 ML SYRINGE SUBCUT SCH (21:54)
[2021-03-23] MEDS: SERTRALINE 100 MG TABLET PEG SCH (21:54)
[2021-03-23] MEDS: MENTHOL/ZINC OXIDE OINT 71 GM JAR TOP SCH (21:54)
[2021-03-24] MEDS: INSULIN LISPRO 100 UNIT/ML SUBCUT SCH ×4 (00:05→20:24)
[2021-03-24] MEDS: ACETAMINOPHEN 325 MG TABLET PO PRN (00:06)
[2021-03-24 04:03] LABS: Basophils % 0.3 % (0.0-0.8); Eosinophils # 0.5 10*3/uL (0.0-0.87); Eosinophils % 7.9 % (0.00-10.9); Hematocrit 26.9 VOL% (35.7-47.0); Hemoglobin 8.1 GM/DL (12.0-16.0); Immature Granulocytes % 0.3 %; Immature Granulocytes Absolute 0.02 #; Lymphocytes # 1.7 10*3/uL (1.4-4.0); Lymphocytes % 25.7 % (21.3-54.2); Mean Corpuscular HGB Conc 30.1 GM/DL (32-36); Mean Corpuscular Volume 93.4 FL (87-102); Mean Platelet Volume 9.3 FL (9.6-12.0); Monocytes % 15.2 % (1.7-12.7); Neutrophils % 50.6 % (38.7-73.9); Platelet Count 248 T/CUMM (130-400); Red Blood Count 2.88 MC/CUMM (3.8-5.5); Red Cell Distribution Width 15.8 % (9.3-17.3); White Blood Count 6.5 T/CUMM (4-12)
[2021-03-24 04:22] LABS: Calcium 8.2 MG/DL (8.5-10.1); Osmolality,Calculated 295.4 MOS/KG (273-304); Potassium 2.8 MMOL/L (3.5-5.1)
[2021-03-24] MEDS: LEVOTHYROXINE 150 MCG TABLET PEG SCH (07:00)
[2021-03-24] MEDS: SODIUM CHLORIDE 0.45% 1,000 ML IV SCH ×2 (07:02→16:52)
[2021-03-24] MEDS: PANTOPRAZOLE 40 MG VIAL IV SCH (08:03)
[2021-03-24] MEDS: LORATADINE 10 MG TABLET PEG SCH (08:04)
[2021-03-24] MEDS: gemfibroziL 600 MG TABLET PEG SCH ×2 (08:04→21:20)
[2021-03-24] MEDS: POTASSIUM CHLORIDE 20 MEQ TABLET PO PRN ×4 (08:04→14:21)
[2021-03-24] MEDS: VALPROIC ACID 250 MG/5 ML UDCUP PEG SCH ×2 (08:04→21:19)
[2021-03-24] MEDS: MENTHOL/ZINC OXIDE OINT 71 GM JAR TOP SCH ×2 (08:04→21:19)
[2021-03-24] MEDS: NON-FORMULARY MEDICATION (Bacillus Coagulan-Calcium Carb [Digestive Advantage Probiotic] 2 PO SCH (09:24)
[2021-03-24] MEDS: levETIRAcetam LIQUID 100 MG/ML 30 ML/BOTTLE PEG SCH ×2 (10:54→21:20)
[2021-03-24] MEDS: GENTAMICIN INJ 80 MG/50 ML PREMIX IV SCH (12:51)
[2021-03-24] MEDS: SERTRALINE 100 MG TABLET PEG SCH (21:19)
[2021-03-24] MEDS: GABAPENTIN 300 MG CAPSULE PEG SCH (21:20)
[2021-03-24] MEDS: ENOXAPARIN 40 MG/0.4 ML SYRINGE SUBCUT SCH (21:20)
[2021-03-25] MEDS: SODIUM CHLORIDE 0.45% 1,000 ML IV SCH ×4 (01:18→21:20)
[2021-03-25] MEDS: INSULIN LISPRO 100 UNIT/ML SUBCUT SCH ×5 (01:18→23:45)
[2021-03-25 05:33] LABS: Basophils % 0.4 % (0.0-0.8); Eosinophils # 0.4 10*3/uL (0.0-0.87); Eosinophils % 7.7 % (0.00-10.9); Hematocrit 26.6 VOL% (35.7-47.0); Immature Granulocytes % 0.4 %; Immature Granulocytes Absolute 0.02 #; Lymphocytes # 1.5 10*3/uL (1.4-4.0); Lymphocytes % 29.9 % (21.3-54.2); Mean Corpuscular HGB Conc 30.1 GM/DL (32-36); Mean Corpuscular Volume 92.7 FL (87-102); Mean Platelet Volume 9.6 FL (9.6-12.0); Monocytes % 11.1 % (1.7-12.7); Neutrophils % 50.5 % (38.7-73.9); Platelet Count 236 T/CUMM (130-400); Red Blood Count 2.87 MC/CUMM (3.8-5.5); Red Cell Distribution Width 15.7 % (9.3-17.3); White Blood Count 5.1 T/CUMM (4-12)
[2021-03-25 05:54] LABS: Hypochromia Slight; Platelet Estimate Normal
[2021-03-25 06:01] LABS: Calcium 8.3 MG/DL (8.5-10.1); Osmolality,Calculated 285.1 MOS/KG (273-304); Potassium 3.9 MMOL/L (3.5-5.1)
[2021-03-25] MEDS: LEVOTHYROXINE 150 MCG TABLET PEG SCH (06:17)
[2021-03-25] MEDS: LORATADINE 10 MG TABLET PEG SCH (08:33)
[2021-03-25] MEDS: VALPROIC ACID 250 MG/5 ML UDCUP PEG SCH ×2 (08:33→20:57)
[2021-03-25] MEDS: MENTHOL/ZINC OXIDE OINT 71 GM JAR TOP SCH ×2 (08:34→20:58)
[2021-03-25] MEDS: levETIRAcetam LIQUID 100 MG/ML 30 ML/BOTTLE PEG SCH ×2 (08:34→20:58)
[2021-03-25] MEDS: PANTOPRAZOLE 40 MG VIAL IV SCH (08:34)
[2021-03-25] MEDS: gemfibroziL 600 MG TABLET PEG SCH ×2 (08:35→20:57)
[2021-03-25] MEDS: MEROPENEM 500 MG in SODIUM CHLORIDE 0.9% 100 ML IV SCH ×2 (11:05→16:42)
[2021-03-25] MEDS: NON-FORMULARY MEDICATION (Bacillus Coagulan-Calcium Carb [Digestive Advantage Probiotic] 2 PO SCH (11:18)
[2021-03-25] MEDS: GENTAMICIN INJ 80 MG/50 ML PREMIX IV SCH (14:30)
[2021-03-25] MEDS: GABAPENTIN 300 MG CAPSULE PEG SCH (20:57)
[2021-03-25] MEDS: ENOXAPARIN 40 MG/0.4 ML SYRINGE SUBCUT SCH (20:57)
[2021-03-25] MEDS: SERTRALINE 100 MG TABLET PEG SCH (20:57)
[2021-03-26] MEDS: SODIUM CHLORIDE 0.45% 1,000 ML IV SCH ×2 (05:20→15:22)
[2021-03-26] MEDS: LEVOTHYROXINE 150 MCG TABLET PEG SCH (06:34)
[2021-03-26] MEDS: INSULIN LISPRO 100 UNIT/ML SUBCUT SCH ×3 (06:34→19:00)
[2021-03-26 06:56] LABS: Basophils % 0.5 % (0.0-0.8); Eosinophils # 0.5 10*3/uL (0.0-0.87); Eosinophils % 10.2 % (0.00-10.9); Hematocrit 27.3 VOL% (35.7-47.0); Hemoglobin 8.3 GM/DL (12.0-16.0); Immature Granulocytes % 1.6 %; Immature Granulocytes Absolute 0.07 #; Lymphocytes # 1.2 10*3/uL (1.4-4.0); Lymphocytes % 26.5 % (21.3-54.2); Mean Corpuscular HGB Conc 30.4 GM/DL (32-36); Mean Corpuscular Volume 92.5 FL (87-102); Mean Platelet Volume 9.1 FL (9.6-12.0); Monocytes % 12.9 % (1.7-12.7); Neutrophils % 48.3 % (38.7-73.9); Platelet Count 230 T/CUMM (130-400); Red Blood Count 2.95 MC/CUMM (3.8-5.5); Red Cell Distribution Width 15.9 % (9.3-17.3); White Blood Count 4.4 T/CUMM (4-12)
[2021-03-26 07:13] LABS: Calcium 8.3 MG/DL (8.5-10.1); Osmolality,Calculated 287.8 MOS/KG (273-304); Potassium 3.8 MMOL/L (3.5-5.1)
[2021-03-26] MEDS: levETIRAcetam LIQUID 100 MG/ML 30 ML/BOTTLE PEG SCH ×2 (09:29→21:35)
[2021-03-26] MEDS: gemfibroziL 600 MG TABLET PEG SCH ×2 (09:29→21:25)
[2021-03-26] MEDS: LORATADINE 10 MG TABLET PEG SCH (09:29)
[2021-03-26] MEDS: MEROPENEM 500 MG in SODIUM CHLORIDE 0.9% 100 ML IV SCH ×3 (09:29→17:16)
[2021-03-26] MEDS: VALPROIC ACID 250 MG/5 ML UDCUP PEG SCH ×2 (09:29→21:25)
[2021-03-26] MEDS: MENTHOL/ZINC OXIDE OINT 71 GM JAR TOP SCH ×2 (09:30→21:34)
[2021-03-26] MEDS: PANTOPRAZOLE 40 MG VIAL IV SCH (09:30)
[2021-03-26] MEDS: NON-FORMULARY MEDICATION (Bacillus Coagulan-Calcium Carb [Digestive Advantage Probiotic] 2 PO SCH (11:09)
[2021-03-26] MEDS: GENTAMICIN INJ 80 MG/50 ML PREMIX IV SCH (16:20)
[2021-03-26] MEDS: GABAPENTIN 300 MG CAPSULE PEG SCH (21:25)
[2021-03-26] MEDS: SERTRALINE 100 MG TABLET PEG SCH (21:25)
[2021-03-26] MEDS: ENOXAPARIN 40 MG/0.4 ML SYRINGE SUBCUT SCH (21:25)
[2021-03-27] MEDS: INSULIN LISPRO 100 UNIT/ML SUBCUT SCH ×4 (00:31→17:35)
[2021-03-27] MEDS: MEROPENEM 500 MG in SODIUM CHLORIDE 0.9% 100 ML IV SCH ×2 (00:31→10:02)
[2021-03-27] MEDS: SODIUM CHLORIDE 0.45% 1,000 ML IV SCH ×4 (00:31→22:50)
[2021-03-27 04:24] LABS: Basophils # 0.1 10*3/uL (0.0-0.2); Basophils % 0.7 % (0.0-0.8); Eosinophils # 0.5 10*3/uL (0.0-0.87); Eosinophils % 7.9 % (0.00-10.9); Hematocrit 28.5 VOL% (35.7-47.0); Hemoglobin 8.3 GM/DL (12.0-16.0); Immature Granulocytes % 2.3 %; Immature Granulocytes Absolute 0.16 #; Lymphocytes # 1.9 10*3/uL (1.4-4.0); Lymphocytes % 28.2 % (21.3-54.2); Mean Corpuscular HGB Conc 29.1 GM/DL (32-36); Mean Platelet Volume 9.8 FL (9.6-12.0); Monocytes % 15.2 % (1.7-12.7); Neutrophils % 45.7 % (38.7-73.9); Platelet Count 255 T/CUMM (130-400); Red Cell Distribution Width 15.9 % (9.3-17.3); White Blood Count 6.8 T/CUMM (4-12)
[2021-03-27 04:49] LABS: Calcium 8.7 MG/DL (8.5-10.1); Osmolality,Calculated 282.1 MOS/KG (273-304); Potassium 3.6 MMOL/L (3.5-5.1)
[2021-03-27] MEDS: LEVOTHYROXINE 150 MCG TABLET PEG SCH (06:14)
[2021-03-27] MEDS: NON-FORMULARY MEDICATION (Bacillus Coagulan-Calcium Carb [Digestive Advantage Probiotic] 2 PO SCH (08:25)
[2021-03-27] MEDS: VALPROIC ACID 250 MG/5 ML UDCUP PEG SCH ×2 (10:00→21:31)
[2021-03-27] MEDS: LORATADINE 10 MG TABLET PEG SCH (10:00)
[2021-03-27] MEDS: gemfibroziL 600 MG TABLET PEG SCH ×2 (10:00→21:31)
[2021-03-27] MEDS: MENTHOL/ZINC OXIDE OINT 71 GM JAR TOP SCH ×2 (10:01→21:31)
[2021-03-27] MEDS: PANTOPRAZOLE 40 MG VIAL IV SCH (10:01)
[2021-03-27] MEDS: levETIRAcetam LIQUID 100 MG/ML 30 ML/BOTTLE PEG SCH ×2 (11:23→21:32)
[2021-03-27] MEDS ORDERED: LIDOCAINE 2% TOP JELLY 20 ML VIAL INTRAURETH ONE (13:09)
[2021-03-27] MEDS ORDERED: GENTAMICIN INJ 80 MG in SODIUM CHLORIDE 0.9% 100 ML IV SCH (14:00)
[2021-03-27] MEDS: LEVOFLOXACIN INJ 500 MG/100 ML PREMIX IV SCH (16:23)
[2021-03-27] MEDS: MIDODRINE 5 MG TABLET PO SCH ×2 (16:23→21:31)
[2021-03-27] MEDS: SERTRALINE 100 MG TABLET PEG SCH (21:31)
[2021-03-27] MEDS: GABAPENTIN 300 MG CAPSULE PEG SCH (21:32)
[2021-03-27] MEDS: ENOXAPARIN 40 MG/0.4 ML SYRINGE SUBCUT SCH (21:33)
[2021-03-28] MEDS: INSULIN LISPRO 100 UNIT/ML SUBCUT SCH ×4 (00:20→17:50)
[2021-03-28 05:04] LABS: Basophils # 0.1 10*3/uL (0.0-0.2); Basophils % 0.9 % (0.0-0.8); Eosinophils # 0.5 10*3/uL (0.0-0.87); Eosinophils % 6.9 % (0.00-10.9); Hemoglobin 8.1 GM/DL (12.0-16.0); Immature Granulocytes % 3.8 %; Lymphocytes # 1.8 10*3/uL (1.4-4.0); Lymphocytes % 22.7 % (21.3-54.2); Mean Corpuscular Volume 92.8 FL (87-102); Mean Platelet Volume 9.6 FL (9.6-12.0); Monocytes % 13.2 % (1.7-12.7); Neutrophils % 52.5 % (38.7-73.9); Platelet Count 331 T/CUMM (130-400); Red Blood Count 2.91 MC/CUMM (3.8-5.5); Red Cell Distribution Width 15.9 % (9.3-17.3); White Blood Count 7.8 T/CUMM (4-12)
[2021-03-28 05:39] LABS: Calcium 8.4 MG/DL (8.5-10.1); Osmolality,Calculated 281.3 MOS/KG (273-304); Potassium 3.7 MMOL/L (3.5-5.1)
[2021-03-28] MEDS: LEVOTHYROXINE 150 MCG TABLET PEG SCH (06:20)
[2021-03-28] MEDS: SODIUM CHLORIDE 0.45% 1,000 ML IV SCH ×2 (08:41→18:03)
[2021-03-28] MEDS: NON-FORMULARY MEDICATION (Bacillus Coagulan-Calcium Carb [Digestive Advantage Probiotic] 2 PO SCH (08:41)
[2021-03-28] MEDS: VALPROIC ACID 250 MG/5 ML UDCUP PEG SCH ×2 (09:58→21:19)
[2021-03-28] MEDS: gemfibroziL 600 MG TABLET PEG SCH ×2 (09:58→21:19)
[2021-03-28] MEDS: MIDODRINE 5 MG TABLET PO SCH ×3 (09:58→21:19)
[2021-03-28] MEDS: LORATADINE 10 MG TABLET PEG SCH (09:58)
[2021-03-28] MEDS: PANTOPRAZOLE 40 MG VIAL IV SCH (09:58)
[2021-03-28] MEDS: MENTHOL/ZINC OXIDE OINT 71 GM JAR TOP SCH ×2 (09:58→21:20)
[2021-03-28] MEDS: levETIRAcetam LIQUID 100 MG/ML 30 ML/BOTTLE PEG SCH ×2 (10:31→21:20)
[2021-03-28] MEDS: LEVOFLOXACIN INJ 500 MG/100 ML PREMIX IV SCH (12:27)
[2021-03-28] MEDS: ENOXAPARIN 40 MG/0.4 ML SYRINGE SUBCUT SCH (21:19)
[2021-03-28] MEDS: SERTRALINE 100 MG TABLET PEG SCH (21:19)
[2021-03-28] MEDS: GABAPENTIN 300 MG CAPSULE PEG SCH (21:19)
[2021-03-29] MEDS: SODIUM CHLORIDE 0.45% 1,000 ML IV SCH (02:30)
[2021-03-29] MEDS: INSULIN LISPRO 100 UNIT/ML SUBCUT SCH ×2 (03:08→05:14)
[2021-03-29] MEDS: LEVOTHYROXINE 150 MCG TABLET PEG SCH (06:17)
[2021-03-29] MEDS: PANTOPRAZOLE 40 MG VIAL IV SCH (08:47)
[2021-03-29] MEDS: MENTHOL/ZINC OXIDE OINT 71 GM JAR TOP SCH (08:48)
[2021-03-29] MEDS: gemfibroziL 600 MG TABLET PEG SCH (08:48)
[2021-03-29] MEDS: VALPROIC ACID 250 MG/5 ML UDCUP PEG SCH (08:48)
[2021-03-29] MEDS: levETIRAcetam LIQUID 100 MG/ML 30 ML/BOTTLE PEG SCH (08:48)
[2021-03-29] MEDS: LORATADINE 10 MG TABLET PEG SCH (08:48)
[2021-03-29] MEDS: MIDODRINE 5 MG TABLET PO SCH (08:49)
[2021-03-29] MEDS ORDERED: CIPROFLOXACIN 500 MG TABLET PO SCH (09:00)
[2021-03-29] MEDS: NON-FORMULARY MEDICATION (Bacillus Coagulan-Calcium Carb [Digestive Advantage Probiotic] 2 PO SCH (10:29)
[2021-03-29 11:20] VITALS: BP 93/57
== END 2021-03-29 12:56 | disposition home health service (06) | DRG 698 ==
LOC: EDUNIT# → EDBD → N.ED 15:27 → SUATTDRO 03-22 01:24 → N.EDINP 03-22 01:24 → N.ICU 03-22 15:05 → N.EDINP 03-22 15:17 → N.TELEN 03-24 14:16
PROVIDERS: ADMIT Internal Medicine; ATTEND Internal Medicine Geriatric Medicine